=== PATIENT | female | born 1945 | race Caucasian/White ===

== ENCOUNTER 2016-09-01 06:54 | Day surgery (SDC) | payer MEDICARE, OTHER ==
[~2016-09-01] VITALS: Ht 147.3 cm; Wt 49.9 kg
[2016-09-01] VITALS (14 sets, daily range): BP systolic 106–194; BP diastolic 38–82; PULSE 64–78; RESP 11–24; Ht 147.3 cm; Wt 49.9 kg
[~2016-09-01 06:54] MED LIST: ASPI81TA3 PO; CALC500T11 PO; CARV12.579 PO; CHLO25TA13 PO; CRES10 PO; LEVO25TA53 PO; LIRA0.6P2 SQ; LISI20TA11 PO; SOD CHLORIDE 0.45% 1,000 ML IV SCH; TRAM-40 PO
[2016-09-01] MEDS ORDERED: DIAZEPAM 5 MG TAB PO SCH (08:00)
[2016-09-01 08:33] LABS: BASOPHIL # 0.1 10^3/ul (0.0-0.1); BASOPHILS % 0.8 % (0.0-2.0); CONDITION 1; EOSINOPHILS # 0.2 10^3/ul (0.0-0.5); EOSINOPHILS % 3.1 % (0.0-7.0); HEMATOCRIT 31.5 % (37.0-47.0); HEMOGLOBIN 10.7 g/dl (12.0-16.0); LYMPHOCYTES # 1.4 10^3/ul (0.8-2.9); LYMPHOCYTES % 21.2 % (15.0-51.0); MEAN CORPUSCULAR HEMOGLOBIN 31.2 pg (29.0-33.0); MEAN CORPUSCULAR VOLUME 91.9 fl (82.0-101.0); MEAN PLATELET VOLUME 8.7 fl (7.4-10.4); MONOCYTE # 0.7 10^3/ul (0.3-0.9); MONOCYTES % 10.5 % (0.0-11.0); NEUTROPHIL # 4.1 10^3/ul (1.6-7.5); NEUTROPHILS % 64.4 % (39.0-77.0); PLATELET COUNT 227 10^3/UL (140-440); RED BLOOD COUNT 3.43 10^6/ul (4.20-5.40); RED CELL DISTRIBUTION WIDTH 12.6 % (11.5-14.5); UNCORRECTED WBC 6.4 10^3/ul (4.8-10.8); WHITE BLOOD COUNT 6.4 10^3/ul (4.8-10.8)
[2016-09-01] MEDS ORDERED: FENTAnyl 50 MCG/ML VIAL ONE (08:51)
[2016-09-01] MEDS ORDERED: MIDAZOLAM 1 MG/ML 2 ML INJ ONE ×2 (08:51→09:38)
[2016-09-01 08:52] LABS: POTASSIUM 4.5 mmol/L (3.5-5.1)
[2016-09-01] MEDS ORDERED: IODIXANOL LOCM 100 ML BTL ONE (08:52)
[2016-09-01] MEDS ORDERED: HEPARIN 1000 UNITS/ML 10 ML INJ ONE (08:52)
[2016-09-01] MEDS ORDERED: LIDOCAINE 1% (MDV) 20 ML INJ ONE ×2 (08:52→09:28)
[2016-09-01 08:54] LABS: CREATININE 0.88 mg/dl (0.44-1.00)
--- NOTE | 2016-09-01 09:13 | QN ---
Documentation Comment Brief Pre-Procedure Note - 71 yof w/ severe PAD with lifestyle limiting claudication and found to have bilateral common iliac occlusions on prior angiogram (right CTA, left subtotal) . She was offered the option for evaluation for an aorto-bifemoral bypass by Dr. Lentz (who follows her regular in cardiology clinic). She refused because of her prior complications with prior surgeries and all her comorbidities. Had a long discussion with Dr. Lentz and reviewed the films. Will attempt revascularization of the bilateral common iliac occlusions today. Dr. Lentz had a long discussion with pt and her daughter regarding the risks, benefits, and alternatives (which include medical therapy). Risks include DE, stroke, vascular injury, bleeding, infection, contrast nephropathy, emergency surgery and . I confirmed this with the patient prior to the procedure. VENKAT HERNANDEZ Sep 01, 2016 09:13
[2016-09-01] MEDS ORDERED: SOD CHLORIDE 0.9% 1,000 ML IV SCH (10:29)
[2016-09-01] MEDS ORDERED: morphine 2 MG INJ IV PRN (10:30)
[2016-09-01] MEDS ORDERED: AL HYDROX/MG HYDROX/SIMETH 30 ML CUP PO PRN (10:30)
[2016-09-01] MEDS ORDERED: ACETAMINOPHEN 325 MG TAB PO PRN (10:30)
[2016-09-01] MEDS ORDERED: ONDANSETRON 4 MG INJ IV PRN (10:30)
[2016-09-01] MEDS ORDERED: hydrALAzine 20 MG INJ IV ONE (12:30)
[2016-09-01] MEDS ORDERED: NITROGLYCERIN (SL) 0.4 MG TAB SL PRN (13:30)
[2016-09-01] MEDS ORDERED: morphine 2 MG INJ IV ONE (14:30)
--- NOTE | 2016-09-06 10:35 | RADRPT ---
Vent Rate: 80 bpm RR Interval: 0 msec FL Interval: 130 msec QRS Duration: 84 msec QT Interval: 364 msec QTC Interval: 419 msec P-R-T [place]: 69 - 24 - 88 degrees Normal sinus rhythm Possible Anterior infarct , age undetermined Abnormal ECG Electronically Signed By: Kev Thorpe [id number]
--- NOTE | 2016-09-07 18:27 | OPR ---
DATE OF OPERATION: 09/01/2016 PROCEDURES PERFORMED: Left common femoral, left external and common iliac angiogram. 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 After last peripheral angiogram, decided to stop and ev aluate for aortobifemoral surgery. The patient is followed by Dr. Kev Thorpe for Cardiology. He had a detailed discussion with patient and her daughter. The patient did not want surgery becaus e of issues after her CABG which included postop acute kidney injury and wound infection. Plan toda y for a percutaneous revascularization of the common iliac CTOs by angioplasty and stenting. PROCEDURE NARRATIVE: Informed consent obtained and documented. Area above bilateral groins prepped and draped in sterile fashion. Using ultrasound and fluoroscopic guidance, access was obtained in the left common femoral artery. A 5-Beninese sheath was placed in the left common femoral artery, whi ch was heavily calcified. A femoral angiogram confirmed that the sheath was appropriately placed in the left common femoral artery with no evidence of dissection or perforation, that iliofemoral ray ogram also revealed that left common iliac was occluded and heavily calcified. A repeat angiogram f urtomer clarified that. ____ was made, and attempt was made to cross the TRADER of left common iliac wi th angled Glidewire 0.035 and an Omniflush 5-Beninese catheter, was successful to cross the TRADER with t he angled Glidewire. However, the Omniflush would not pass through the stenosis. At this point was going to attempt to cross through with a Quick-Cross microcatheter 0.035 and then switch to a stiff er wire. However, there was a STEMI that arrived in the ER. As there were no other labs available, per protocol, we had to stop the procedure and take the patient off the table. Removed the Omniflu sh catheter and the Glidewire, left the sheath in place, informed the patient what was going on. Th e patient was asymptomatic and hemodynamically stable. She was taken to the PACU. At this point spoke with Dr. Thorpe about the best way to proceed as the STEMI was being processed and taken to the lab. Decided it would be best to bring patient back and do the procedure in a man ner that would be free of interruptions. Dr. Thorpe discussed this with the patient and her daugh ter in detail. They agreed with this plan. The sheath was removed, and manual pressure was used to achieve hemostasis. IMPRESSION: Left common iliac chronic total occlusion, heavily calcified, was successfully able to cross this lesion with an angled Glidewire, but the procedure had to be aborted due to the arrival o f a STEMI in the emergency room. After discussion with Dr. Thorpe and patient in detail, decided would bring patient back to complete the procedure. PLAN: Continue medical therapy. Will reschedule patient to return for repeat attempt to revascular ize the TRADER, hopefully in a manner that won't be interrupted. COMPLICATIONS: None. ESTIMATED BLOOD LOSS: 5 mL SPECIMENS REMOVED: None. Dictated By: JOSÉ MIGUEL LONG MD /NTS Conf#: [id number] DID#: [id number]
== END 2016-09-01 17:10 | disposition home or self-care (01) ==
LOC: SDS 06:54
PROVIDERS: ATTEND Internal Medicine Interventional Cardiology
DX: I74.5 Embolism and thrombosis of iliac artery (principal); I10 Essential (primary) hypertension; E78.5 Hyperlipidemia, unspecified; Z95.1 Presence of aortocoronary bypass graft
CPT/HCPCS: 36140; 75630; 80048; 82962; 85025; 93005; C1769; C1887; C1894; J0360; J1644; J2250; J2270; J2405; J3010; Q9967

== ENCOUNTER → 2016-10-14 | Outpatient (CLI) | payer MEDICARE, OTHER ==
[~2016-10-14] MED LIST changes: -CHLO25TA13 PO; +IODIXANOL LOCM 100 ML BTL ONE; +IODIXANOL LOCM 50 ML BTL ONE; -LISI20TA11 PO; -SOD CHLORIDE 0.45% 1,000 ML IV SCH; +SOD CHLORIDE 0.9% 100 ML ONE
[2016-10-14 11:47] LABS: ADD SCAN DIFF NO
[2016-10-14 11:52] LABS: BASOPHIL # 0.1 10^3/ul (0.0-0.1); BASOPHILS % 0.9 % (0.0-2.0); EOSINOPHILS # 0.2 10^3/ul (0.0-0.5); EOSINOPHILS % 2.2 % (0.0-7.0); HEMATOCRIT 34.6 % (37.0-47.0); HEMOGLOBIN 11.5 g/dl (12.0-16.0); LYMPHOCYTES # 1.6 10^3/ul (0.8-2.9); LYMPHOCYTES % 19.8 % (15.0-51.0); MEAN CORPUSCULAR HEMOGLOBIN 31.3 pg (29.0-33.0); MEAN CORPUSCULAR HGB CONC 33.2 g/dl (32.0-37.0); MEAN PLATELET VOLUME 10.4 fl (7.4-10.4); MONOCYTE # 0.7 10^3/ul (0.3-0.9); MONOCYTES % 8.2 % (0.0-11.0); NEUTROPHIL # 5.4 10^3/ul (1.6-7.5); NEUTROPHILS % 68.4 % (39.0-77.0); PLATELET COUNT 269 10^3/UL (140-415); RED BLOOD COUNT 3.68 10^6/ul (4.20-5.40); RED CELL DISTRIBUTION WIDTH 12.1 % (11.5-14.5); WHITE BLOOD COUNT 7.9 10^3/ul (4.8-10.8)
[2016-10-14 12:04] LABS: INR 0.98
[2016-10-14 12:05] LABS: PARTIAL THROMBOPLASTIN TIME 28.6 Sec (25.0-35.0)
[2016-10-14 12:11] LABS: POTASSIUM 5.2 mmol/L (3.5-5.1)
[2016-10-14 12:13] LABS: CREATININE 1.25 mg/dl (0.44-1.00)
[2016-10-14 12:14] LABS: CALCIUM 9.6 mg/dl (8.4-10.2)
--- NOTE | 2016-10-16 13:27 | RADRPT ---
PROCEDURE: CT scan of the abdomen, pelvis, and lower extremities with contrast. CT angiogram of th e abdomen, pelvis, and lower extremities. CLINICAL INDICATION: Abdominal and pelvic pain. Bilateral lower extremity pain. TECHNIQUE: CT scan of the abdomen, pelvis, and lower extremities with contrast was performed with helical axial sections. The patient was scanned during intravenous administration of 110 ml of Visi paque 320. 2-D coronal reformatted images were obtained from the axial source images. In addition, 3-D post processing was performed. Total exam DLP is 600.09 mGy-cm. CTDIvol is 55.75 mGy. One or more of the following dose reduction techniques were used: Automated exposure control, adjustment o f the mA and/or kV according to patient size, use of iterative reconstruction technique. COMPARISON: None available FINDINGS: CT abdomen: There are sternal wires and mediastinal clips from previous CABG. There is coronary artery calcific ation. The heart is enlarged. There is no pericardial effusion or pleural effusion. The lung base s are normal. The liver is normal in size and attenuation. There is no focal hepatic lesion. The gallbladder is surgically absent with clips noted in the gallbladder bed. There is mild diffuse biliary dilatation with no obstructing lesion visualized. The spleen is normal in size. There is no focal splenic lesion. The pancreas is normal with no mass or evidence of pancreatitis. Both adrenals are normal with no enlargement or mass. Both kidneys demonstrate normal contrast enhancement. There is no solid renal mass or hydronephros is. There are small benign bilateral renal cysts. Small regions of scarring are present in the rig ht kidney with parenchymal thinning. There is no retroperitoneal lymphadenopathy or mass. There is diverticulosis of the colon with no evidence of diverticulitis. There has been previous ri ght hemicolectomy with surgical clips and sachin noted in the right side of the transverse colon. The bowel and mesentery are otherwise normal. There is no free fluid or free gas. CT pelvis: There is no pelvic lymphadenopathy or mass. The bladder and distal ureters are normal. The uterus and ovaries are grossly normal. There is diverticulosis of the colon with no evidence of diverticulitis. There is no free fluid or free gas. CT osseous structures: There is no fracture or lytic lesion. There are degenerative changes of the lower lumbar spine. CT angiogram: The distal thoracic aorta is normal with no aneurysm or dissection. Extensive calcified plaque is present in the abdominal aorta. The abdominal aorta is otherwise norm al with no aneurysm or dissection. The celiac axis, superior mesenteric artery, and inferior mesenteric artery are all well seen and ap pear normal with no stenosis or occlusion. Extensive calcified plaque is present at the origin of both renal arteries which may indicate renal artery stenosis. Extensive calcified plaque is present in the common iliac arteries with possible significant stenosi s on the right and mild stenosis on the left. The external iliac arteries and common iliac arteries are widely patent bilaterally. The superficial femoral arteries demonstrate multiple regions of mild stenosis measuring less than 3 0% bilaterally but are otherwise patent. The popliteal arteries are normal and patent bilaterally. The right posterior tibial artery is completely occluded. The calf arteries are otherwise widely pa tent bilaterally. IMPRESSION: 1. Previous CABG. 2. Coronary artery calcification. 3. Cardiomegaly. 4. Status post cholecystectomy. 5. Mild diffuse biliary dilatation with no obstructing lesion visualized. 6. Small benign bilateral renal cysts. 7. Small regions of scarring in the right kidney. 8. Diverticulosis of the colon with no evidence of diverticulitis. 9. Previous right hemicolectomy. 10. Degenerative changes of the lower lumbar spine. 11. Extensive calcified plaque in the abdominal aorta with no significant stenosis. 12. Possible bilateral renal artery stenosis. 13. Possible significant stenosis in the right common iliac artery. 14. Mild stenosis in the superficial femoral arteries bilaterally. 15. Completely occluded right posterior tibial artery. RPTAT: QQ .Colin Bernardo MD, Date Time Electronically viewed and signed by .Colin Bernardo MD, MD on 10/16/2016 13:27 .R/
== END | disposition home or self-care (01) ==
LOC: LAB 11:05
PROVIDERS: ATTEND Internal Medicine Interventional Cardiology
DX: I70.203 Unspecified atherosclerosis of native arteries of extremities, bilateral legs (principal); I25.10 Atherosclerotic heart disease of native coronary artery without angina pectoris; I65.29 Occlusion and stenosis of unspecified carotid artery; I12.9 Hypertensive chronic kidney disease with stage 1 through stage 4 chronic kidney disease, or unspecified chronic kidney disease; E11.22 Type 2 diabetes mellitus with diabetic chronic kidney disease; N18.9 Chronic kidney disease, unspecified; Z95.1 Presence of aortocoronary bypass graft; I51.7 Cardiomegaly; Z90.49 Acquired absence of other specified parts of digestive tract; K83.9 Disease of biliary tract, unspecified; N28.1 Cyst of kidney, acquired; K57.90 Diverticulosis of intestine, part unspecified, without perforation or abscess without bleeding; I70.0 Atherosclerosis of aorta; I70.1 Atherosclerosis of renal artery; I77.1 Stricture of artery
CPT/HCPCS: 75635; 80048; 85025; 85610; 85730; Q9967

== ENCOUNTER 2017-06-07 05:20 | Day surgery (SDC) | payer MEDICARE, OTHER ==
[~2017-06-07] VITALS: Ht 142.2 cm; Wt 49.6 kg
[2017-06-07] VITALS (76 sets, daily range): BP systolic 115–181; BP diastolic 36–68; PULSE 18–87; RESP 10–27; Ht 142.2 cm; Wt 49.6 kg
[~2017-06-07 05:20] MED LIST changes: -IODIXANOL LOCM 100 ML BTL ONE; -IODIXANOL LOCM 50 ML BTL ONE; -SOD CHLORIDE 0.9% 100 ML ONE
[2017-06-07] MEDS ORDERED: GELATIN SIZE 100 SPONGE ONE (06:46)
[2017-06-07] MEDS ORDERED: THROMBIN 5000 UNIT VIAL ONE (06:46)
[2017-06-07] MEDS ORDERED: HEPARIN 1000 UNITS/ML 10 ML INJ ONE ×2 (06:47→09:23)
[2017-06-07] MEDS ORDERED: OMEP20CA16 PO (07:00)
[2017-06-07] MEDS ORDERED: CARV25TA79 PO (07:00)
[2017-06-07] MEDS ORDERED: CHLO25TA13 PO (07:00)
--- NOTE | 2017-06-07 07:30 | HPN ---
Date/Time of Note Date/Time of Note DATE: 06/07/17 TIME: 07:30 Interval H&P Admission Note Pt. seen H&P reviewed: No system changes MEG FELICIANO MD Jun 07, 2017 07:30
[2017-06-07] MEDS ORDERED: PROPOFOL 20 ML ONE (07:43)
[2017-06-07] MEDS ORDERED: FENTAnyl 50 MCG/ML VIAL ONE ×2 (07:44→10:18)
[2017-06-07] MEDS ORDERED: MIDAZOLAM 1 MG/ML 2 ML INJ ONE ×4 (07:44→10:22)
[2017-06-07] MEDS ORDERED: LIDOCAINE 2% (SDV) 5 ML INJ ONE (07:47)
[2017-06-07] MEDS ORDERED: CEFAZOLIN 2 GM/50 ML (PMX) 50 ML IVPB SCH (08:30)
[2017-06-07] MEDS ORDERED: LIDOCAINE 1% (MPF) 30 ML INJ ONE (08:45)
[2017-06-07] MEDS ORDERED: CEFAZOLIN 1 GM INJ ONE (08:52)
[2017-06-07] MEDS ORDERED: LIDOCAINE 1% (MPF) 30 ML INJ INJ ONE (09:08)
[2017-06-07] MEDS ORDERED: IOHEXOL 300MG/ML 150 ML BTL ONE ×3 (09:12→14:21)
[2017-06-07] MEDS ORDERED: IOHEXOL 300MG/ML 30 ML BTL ONE ×2 (09:25→10:24)
[2017-06-07] MEDS ORDERED: LIDOCAINE 1% (STERILE-PAK) 30 ML INJ ONE (09:27)
[2017-06-07] MEDS ORDERED: hydrALAzine 20 MG INJ ONE (09:37)
[2017-06-07] MEDS ORDERED: SUCCINYLCHOLINE CHLORIDE 100 MG/5 ML SYG IV ONE (10:04)
--- NOTE | 2017-06-07 11:24 | SIPON ---
Date/Time of Note Date/Time of Note DATE: 06/07/17 TIME: 11:21 Operative Report Preoperative Diagnosis Right lower extremity rest pain, left lower extremity disabling claudication Postoperative Diagnosis same Operation/Procedure Performed AORTOILIAC ANGIOGRAM LEFT COMMON ILIAC STENTING AND ANGIOPLASTY USING VIABAHN STENT GRAFT 8X59mm Surgeon see signature line chemistry research assistant DR. RANDALL FELICIANO Anesthesia: moderate sedation Estimated blood loss: minimal Transfusion Required none Specimen NONE Grafts/Implants none Complications none MEG FELICIANO MD Jun 07, 2017 11:24
--- NOTE | 2017-06-07 11:24 | SIPON ---
Date/Time of Note Date/Time of Note DATE: 06/07/17 TIME: 11:21 Operative Report Preoperative Diagnosis Right lower extremity rest pain, left lower extremity disabling claudication Postoperative Diagnosis same Operation/Procedure Performed AORTOILIAC ANGIOGRAM LEFT COMMON ILIAC STENTING AND ANGIOPLASTY USING VIABAHN STENT GRAFT 8X59mm Surgeon see signature line photographer's assistant DR. RANDALL FELICIANO Anesthesia: moderate sedation Estimated blood loss: minimal Transfusion Required none Specimen NONE Grafts/Implants none Complications none MEG FELICIANO MD Jun 07, 2017 11:24
--- NOTE | 2017-06-07 11:24 | SIPON ---
Date/Time of Note Date/Time of Note DATE: 06/07/17 TIME: 11:21 Operative Report Preoperative Diagnosis Right lower extremity rest pain, left lower extremity disabling claudication Postoperative Diagnosis same Operation/Procedure Performed AORTOILIAC ANGIOGRAM LEFT COMMON ILIAC STENTING AND ANGIOPLASTY USING VIABAHN STENT GRAFT 8X59mm Surgeon see signature line blacksmith assistant DR. RANDALL FELICIANO Anesthesia: moderate sedation Estimated blood loss: minimal Transfusion Required none Specimen NONE Grafts/Implants none Complications none MEG FELICIANO MD Jun 07, 2017 11:24
[2017-06-07] MEDS ORDERED: DIPHENHYDRAMINE 50 MG INJ IV PRN (11:30)
[2017-06-07] MEDS ORDERED: OXYCODONE/ACETAMINOPHEN (5/325) TAB PO PRN ×2 (11:30)
[2017-06-07] MEDS ORDERED: EPHEDrine SULFATE 50 MG/5 ML SYG IV PRN (11:30)
[2017-06-07] MEDS ORDERED: MIDAZOLAM 1 MG/ML 2 ML INJ IV PRN (11:30)
[2017-06-07] MEDS ORDERED: ONDANSETRON 4 MG INJ IV PRN ×2 (11:30→15:30)
[2017-06-07] MEDS ORDERED: MEPERIDINE 25 MG INJ IV PRN (11:30)
[2017-06-07] MEDS ORDERED: LABETALOL HCL 20MG INJ IV PRN (11:30)
[2017-06-07] MEDS ORDERED: METOCLOPRAMIDE 10 MG INJ IV PRN (11:30)
[2017-06-07] MEDS ORDERED: FENTAnyl 50 MCG/ML VIAL IV PRN ×3 (11:30)
[2017-06-07] MEDS ORDERED: hydrALAzine 20 MG INJ IV PRN (11:30)
--- NOTE | 2017-06-07 12:28 | OPR ---
DATE OF OPERATION: 06/07/2017 SURGEON: Jakob Higginbotham MD. FRUIT OR NUT PICKER: Cliff Higginbotham MD. PREOPERATIVE DIAGNOSES: Right lower extremity rest pain and left lower extremity disabling claudica tion, aortoiliac occlusive disease. POSTOPERATIVE DIAGNOSES: Right lower extremity rest pain and left lower extremity disabling claudic ation, aortoiliac occlusive disease. ANESTHESIA: Moderate sedation with 1% lidocaine for local. ESTIMATED BLOOD LOSS: Minimal. COMPLICATIONS: None. HEPARIN: As recorded (2000 units). CONTRAST: As recorded. ACCESS: 1. Right common femoral artery 5-Swedish sheath. 2. Left common femoral artery 7-Swedish sheath. CLOSURE: Manual compression for the right groin, Angio-Seal closure device and manual compression f or the left groin. INDICATIONS: This is a 71-year-old vasculopath patient who has had multiple abdominal surgeries and has had severe aortoiliac atherosclerotic occlusive disease in which she had presented about 8 [place] hs ago with severe bilateral lower extremity disabling claudication after 2-3 minutes of ambulation. The patient's symptoms had worsened despite conservative therapy and optimizing her vascular statu s. The patient's right lower extremity has developed significant rest pain left lower extremity, vargas d developed disabling claudication. Therefore, risk and benefits and alternatives were discussed wi th the patient and the family in regards to possibility of aortobifemoral bypass. Aortoiliac stenti ng, possible left common iliac artery stenting and a fem-fem crossover. The risks including but not limited to bleeding, thrombosis, embolization, myocardial infarction, , stroke, device malfunc tion, infection, nephrotoxicity limb loss, bowel ischemia, nerve injury, spinal cord ischemia and th e patient has agreed to proceed. PROCEDURE: 1. Ultrasound-guided axis of the right common femoral artery. 2. Ultrasound-guided access of the left common femoral artery. 3. Introduction of catheter into the aorta. 4. Aortoiliac angiogram. 5. Left common iliac artery stent grafting using a Viabahn 8 x 59 mm balloon mounted stent. FINDINGS: 1. Severely calcified aortoiliac occlusive disease where the aorta becomes severely calcified in th e distal aspect and narrows. 2. Right common iliac artery completely occluded. 3. Right external iliac artery with severe stenosis. 4. Right internal iliac artery not well visualized. 5. Left common iliac artery with severe stenosis and calcification. 6. Left external iliac artery with mild to moderate disease. 7. Left internal iliac artery with mild to moderate disease. DESCRIPTION OF PROCEDURE: The patient was brought into the operating room table and placed in supin e position. Sedation was administered without any complications with our anesthesia team. Arterial line and Brody catheter placed under sterile conditions. At this point, the abdomen, bilateral michael ins were then shaved, prepped and draped in usual standard sterile fashion. Timeout and appropriate site was marked and confirmed. Preoperative antibiotics were given to the patient. Local anesthes ia was then infiltrated in the regions of the bilateral common femoral arteries. The artery, left c ommon femoral artery was then cannulated with a micro access needle under ultrasound guidance and a guidewire was advanced into the iliac artery under fluoroscopic guidance. The needle was then remov ed with the microcatheter that was placed over the wire. A Bentson wire was then passed into the in frarenal aorta under fluoroscopic guidance followed by a short 5-Swedish sheath over the wire. The s spencer was then appropriately flushed with heparinized saline solution. At this point, the same step s were repeated for the right common femoral artery; however, this was a bit challenging as the cary ent has an occlusive right common iliac artery and severely diseased external iliac artery. We did try multiple attempts in order to pass the wire into the common iliac artery which we were able to p erform. At this point, a microcatheter was placed and this was upsized to a 5-Swedish sheath. At th is point, using a Glidewire and a Bentson catheter. We attempted to cross the area of occlusion and severe stenosis of the common iliac artery and the external iliac artery. Multiple attempts were m justice and it was unsuccessful. At this point, it was decided to perform left common iliac artery sten ting in order to create a pathway for eventual fem-fem crossover for the patient. At this point, we went ahead and pressed our marker catheter in the infrarenal aorta and aortoiliac angiogram was per formed. 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 At t his point, we measured the distance from the lowest lumbar branch to the hypogastric vessel. With o ur sizing and our instruments that were available, we went ahead and performed oblique views of our iliac vessel and we prepared to place a stent graft balloon mounted Viabahn 8 mm x 59 mm stent. At this point, we went ahead and placed our stent and gradually deployed the stent to its maximal size of 8-9 mm. Patient tolerated this aspect well. Blood pressures were checked pre- and post-stent pl acement which pre-, the systolic blood pressure in the left groin measured about 90 to about 105 mmH g. Post-intervention, the blood pressure had increased to about 130-140 mmHg. At this point, multi ple completion angiograms were performed in an NIGERIAN and WONG fashion which identified no extravasation or ruptures. The patient tolerated this aspect of the procedure well. At this point, all catheter s, wires and sheaths were removed and Angio-Seal closure device was deployed in the left common femo ral artery. The patient, postoperatively, had a Dopplerable posterior tibial signal that was biphas ic and a monophasic anterior tibial signal which she did not have before. She also a capillary refi ll of about 3 seconds. With the right groin, we went ahead and removed the 5-Swedish sheath and manual compression was held for 20 minutes. Her right lower extremity still has capillary refill that was delayed about 4 secon ds and very monophasic flow of the posterior tibial, anterior tibial arteries were identified upon D oppler. No changes or no ischemia was identified. At this point, all instruments, sponge catheters and needles, wires and sheaths were correct x2. We will have the patient come back for a staged procedure for performing our left to right crossover fem-fem bypass graft. Dictated By: JAKOB VASQUEZ/CARMENCITA Conf#: [id number] DID#: [id number]
--- NOTE | 2017-06-07 12:28 | OPR ---
DATE OF OPERATION: 06/07/2017 SURGEON: Jakob Higginbotham MD. ENVIRONMENTAL MONITORING SPECIALIST: Cliff Higginbotham MD. PREOPERATIVE DIAGNOSES: Right lower extremity rest pain and left lower extremity disabling claudica tion, aortoiliac occlusive disease. POSTOPERATIVE DIAGNOSES: Right lower extremity rest pain and left lower extremity disabling claudic ation, aortoiliac occlusive disease. ANESTHESIA: Moderate sedation with 1% lidocaine for local. ESTIMATED BLOOD LOSS: Minimal. COMPLICATIONS: None. HEPARIN: As recorded (2000 units). CONTRAST: As recorded. ACCESS: 1. Right common femoral artery 5-[place] sheath. 2. Left common femoral artery 7-[place] sheath. CLOSURE: Manual compression for the right groin, Angio-Seal closure device and manual compression f or the left groin. INDICATIONS: This is a 71-year-old vasculopath patient who has had multiple abdominal surgeries and has had severe aortoiliac atherosclerotic occlusive disease in which she had presented about 8 [place] hs ago with severe bilateral lower extremity disabling claudication after 2-3 minutes of ambulation. The patient's symptoms had worsened despite conservative therapy and optimizing her vascular statu s. The patient's right lower extremity has developed significant rest pain left lower extremity, vargas d developed disabling claudication. Therefore, risk and benefits and alternatives were discussed wi th the patient and the family in regards to possibility of aortobifemoral bypass. Aortoiliac stenti ng, possible left common iliac artery stenting and a fem-fem crossover. The risks including but not limited to bleeding, thrombosis, embolization, myocardial infarction, , stroke, device malfunc tion, infection, nephrotoxicity limb loss, bowel ischemia, nerve injury, spinal cord ischemia and th e patient has agreed to proceed. PROCEDURE: 1. Ultrasound-guided axis of the right common femoral artery. 2. Ultrasound-guided access of the left common femoral artery. 3. Introduction of catheter into the aorta. 4. Aortoiliac angiogram. 5. Left common iliac artery stent grafting using a Viabahn 8 x 59 mm balloon mounted stent. FINDINGS: 1. Severely calcified aortoiliac occlusive disease where the aorta becomes severely calcified in th e distal aspect and narrows. 2. Right common iliac artery completely occluded. 3. Right external iliac artery with severe stenosis. 4. Right internal iliac artery not well visualized. 5. Left common iliac artery with severe stenosis and calcification. 6. Left external iliac artery with mild to moderate disease. 7. Left internal iliac artery with mild to moderate disease. DESCRIPTION OF PROCEDURE: The patient was brought into the operating room table and placed in supin e position. Sedation was administered without any complications with our anesthesia team. Arterial line and Brody catheter placed under sterile conditions. At this point, the abdomen, bilateral michael ins were then shaved, prepped and draped in usual standard sterile fashion. Timeout and appropriate site was marked and confirmed. Preoperative antibiotics were given to the patient. Local anesthes ia was then infiltrated in the regions of the bilateral common femoral arteries. The artery, left c ommon femoral artery was then cannulated with a micro access needle under ultrasound guidance and a guidewire was advanced into the iliac artery under fluoroscopic guidance. The needle was then remov ed with the microcatheter that was placed over the wire. A Bentson wire was then passed into the in frarenal aorta under fluoroscopic guidance followed by a short 5-[place] sheath over the wire. The s spencer was then appropriately flushed with heparinized saline solution. At this point, the same step s were repeated for the right common femoral artery; however, this was a bit challenging as the cary ent has an occlusive right common iliac artery and severely diseased external iliac artery. We did try multiple attempts in order to pass the wire into the common iliac artery which we were able to p erform. At this point, a microcatheter was placed and this was upsized to a 5-[place] sheath. At th is point, using a Glidewire and a Bentson catheter. We attempted to cross the area of occlusion and severe stenosis of the common iliac artery and the external iliac artery. Multiple attempts were m justice and it was unsuccessful. At this point, it was decided to perform left common iliac artery sten ting in order to create a pathway for eventual fem-fem crossover for the patient. At this point, we went ahead and pressed our marker catheter in the infrarenal aorta and aortoiliac angiogram was per formed. 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 At t his point, we measured the distance from the lowest lumbar branch to the hypogastric vessel. With o ur sizing and our instruments that were available, we went ahead and performed oblique views of our iliac vessel and we prepared to place a stent graft balloon mounted Viabahn 8 mm x 59 mm stent. At this point, we went ahead and placed our stent and gradually deployed the stent to its maximal size of 8-9 mm. Patient tolerated this aspect well. Blood pressures were checked pre- and post-stent pl acement which pre-, the systolic blood pressure in the left groin measured about 90 to about 105 mmH g. Post-intervention, the blood pressure had increased to about 130-140 mmHg. At this point, multi ple completion angiograms were performed in an [place] and [place] fashion which identified no extravasation or ruptures. The patient tolerated this aspect of the procedure well. At this point, all catheter s, wires and sheaths were removed and Angio-Seal closure device was deployed in the left common femo ral artery. The patient, postoperatively, had a Dopplerable posterior tibial signal that was biphas ic and a monophasic anterior tibial signal which she did not have before. She also a capillary refi ll of about 3 seconds. With the right groin, we went ahead and removed the 5-[place] sheath and manual compression was held for 20 minutes. Her right lower extremity still has capillary refill that was delayed about 4 secon ds and very monophasic flow of the posterior tibial, anterior tibial arteries were identified upon D oppler. No changes or no ischemia was identified. At this point, all instruments, sponge catheters and needles, wires and sheaths were correct x2. We will have the patient come back for a staged procedure for performing our left to right crossover fem-fem bypass graft. Dictated By: JAKOB VASQUEZ/CARMENCITA Conf#: [id number] DID#: [id number]
--- NOTE | 2017-06-07 12:28 | OPR ---
DATE OF OPERATION: 06/07/2017 SURGEON: Jakob Higginbotham MD. LEAD RECOVERER: Cliff Higginbotham MD. PREOPERATIVE DIAGNOSES: Right lower extremity rest pain and left lower extremity disabling claudica tion, aortoiliac occlusive disease. POSTOPERATIVE DIAGNOSES: Right lower extremity rest pain and left lower extremity disabling claudic ation, aortoiliac occlusive disease. ANESTHESIA: Moderate sedation with 1% lidocaine for local. ESTIMATED BLOOD LOSS: Minimal. COMPLICATIONS: None. HEPARIN: As recorded (2000 units). CONTRAST: As recorded. ACCESS: 1. Right common femoral artery 5-[place]izen [place] sheath. 2. Left common femoral artery 7-[place] sheath. CLOSURE: Manual compression for the right groin, Angio-Seal closure device and manual compression f or the left groin. INDICATIONS: This is a 71-year-old vasculopath patient who has had multiple abdominal surgeries and has had severe aortoiliac atherosclerotic occlusive disease in which she had presented about 8 [place] hs ago with severe bilateral lower extremity disabling claudication after 2-3 minutes of ambulation. The patient's symptoms had worsened despite conservative therapy and optimizing her vascular statu s. The patient's right lower extremity has developed significant rest pain left lower extremity, vargas d developed disabling claudication. Therefore, risk and benefits and alternatives were discussed wi th the patient and the family in regards to possibility of aortobifemoral bypass. Aortoiliac stenti ng, possible left common iliac artery stenting and a fem-fem crossover. The risks including but not limited to bleeding, thrombosis, embolization, myocardial infarction, , stroke, device malfunc tion, infection, nephrotoxicity limb loss, bowel ischemia, nerve injury, spinal cord ischemia and th e patient has agreed to proceed. PROCEDURE: 1. Ultrasound-guided axis of the right common femoral artery. 2. Ultrasound-guided access of the left common femoral artery. 3. Introduction of catheter into the aorta. 4. Aortoiliac angiogram. 5. Left common iliac artery stent grafting using a Viabahn 8 x 59 mm balloon mounted stent. FINDINGS: 1. Severely calcified aortoiliac occlusive disease where the aorta becomes severely calcified in th e distal aspect and narrows. 2. Right common iliac artery completely occluded. 3. Right external iliac artery with severe stenosis. 4. Right internal iliac artery not well visualized. 5. Left common iliac artery with severe stenosis and calcification. 6. Left external iliac artery with mild to moderate disease. 7. Left internal iliac artery with mild to moderate disease. DESCRIPTION OF PROCEDURE: The patient was brought into the operating room table and placed in supin e position. Sedation was administered without any complications with our anesthesia team. Arterial line and Brody catheter placed under sterile conditions. At this point, the abdomen, bilateral michael ins were then shaved, prepped and draped in usual standard sterile fashion. Timeout and appropriate site was marked and confirmed. Preoperative antibiotics were given to the patient. Local anesthes ia was then infiltrated in the regions of the bilateral common femoral arteries. The artery, left c ommon femoral artery was then cannulated with a micro access needle under ultrasound guidance and a guidewire was advanced into the iliac artery under fluoroscopic guidance. The needle was then remov ed with the microcatheter that was placed over the wire. A Bentson wire was then passed into the in frarenal aorta under fluoroscopic guidance followed by a short 5-[place]izen [place] sheath over the wire. The s spencer was then appropriately flushed with heparinized saline solution. At this point, the same step s were repeated for the right common femoral artery; however, this was a bit challenging as the cary ent has an occlusive right common iliac artery and severely diseased external iliac artery. We did try multiple attempts in order to pass the wire into the common iliac artery which we were able to p erform. At this point, a microcatheter was placed and this was upsized to a 5-[place] sheath. At th is point, using a Glidewire and a Bentson catheter. We attempted to cross the area of occlusion and severe stenosis of the common iliac artery and the external iliac artery. Multiple attempts were m justice and it was unsuccessful. At this point, it was decided to perform left common iliac artery sten ting in order to create a pathway for eventual fem-fem crossover for the patient. At this point, we went ahead and pressed our marker catheter in the infrarenal aorta and aortoiliac angiogram was per formed. 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 At t his point, we measured the distance from the lowest lumbar branch to the hypogastric vessel. With o ur sizing and our instruments that were available, we went ahead and performed oblique views of our iliac vessel and we prepared to place a stent graft balloon mounted Viabahn 8 mm x 59 mm stent. At this point, we went ahead and placed our stent and gradually deployed the stent to its maximal size of 8-9 mm. Patient tolerated this aspect well. Blood pressures were checked pre- and post-stent pl acement which pre-, the systolic blood pressure in the left groin measured about 90 to about 105 mmH g. Post-intervention, the blood pressure had increased to about 130-140 mmHg. At this point, multi ple completion angiograms were performed in an [employer] [place] and WONG fashion which identified no extravasation or ruptures. The patient tolerated this aspect of the procedure well. At this point, all catheter s, wires and sheaths were removed and Angio-Seal closure device was deployed in the left common femo ral artery. The patient, postoperatively, had a Dopplerable posterior tibial signal that was biphas ic and a monophasic anterior tibial signal which she did not have before. She also a capillary refi ll of about 3 seconds. With the right groin, we went ahead and removed the 5-[place]izen [place] sheath and manual compression was held for 20 minutes. Her right lower extremity still has capillary refill that was delayed about 4 secon ds and very monophasic flow of the posterior tibial, anterior tibial arteries were identified upon D oppler. No changes or no ischemia was identified. At this point, all instruments, sponge catheters and needles, wires and sheaths were correct x2. We will have the patient come back for a staged procedure for performing our left to right crossover fem-fem bypass graft. Dictated By: JAKOB VASQUEZ/CARMENCITA Conf#: [id number] DID#: [id number]
[2017-06-07] MEDS ORDERED: DOCUSATE SODIUM 100 MG CAP PO PRN (15:30)
[2017-06-07] MEDS ORDERED: NACL 0.9% 3 ML SYG IV SCH (15:30)
[2017-06-07] MEDS ORDERED: ACETAMINOPHEN 650MG/20.3ML CUP PO PRN (15:30)
[2017-06-07] MEDS ORDERED: MAGNESIUM HYDROXIDE 30ML CUP PO PRN (15:30)
[2017-06-07] MEDS ORDERED: morphine 2 MG INJ IV PRN (15:30)
[2017-06-07] MEDS: SOD CHLORIDE 0.9% 1,000 ML IV SCH (15:52)
[2017-06-07] MEDS ORDERED: GLUCOSE GEL 15 GRAM TUBE PO PRN ×2 (16:00)
[2017-06-07] MEDS ORDERED: GLUCOSE GEL 15 GRAM TUBE BUCCAL PRN (16:00)
[2017-06-07] MEDS ORDERED: GLUCAGON 1 MG INJ IM PRN (16:00)
[2017-06-07] MEDS ORDERED: DEXTROSE 50% 50 ML SYRINGE IV PRN ×2 (16:00)
--- NOTE | 2017-06-07 16:49 | HP ---
DATE OF ADMISSION: 06/07/2017 HISTORY OF PRESENT ILLNESS: The patient is a 71-year-old female with a past medical history of gordo re peripheral arterial disease, diabetes, hypertension, hyperlipidemia, coronary artery disease, sta tus post CABG, history of colorectal cancer, depression, and hypothyroidism. The patient was evalua jaky by Dr. Higginbotham in Vascular Surgery consultation for severe aortoiliac atherosclerotic disease with bilateral lower extremities disabling claudication. The patient failed conservative treatment. The patient was brought to the hospital and underwent bilateral iliac artery stenting, angiography for bilateral iliac arterial occlusive disease. Postoperatively, the patient complains of pain. D enies any nausea or vomiting. Denies headache. Denies chest pain. Denies shortness of breath, and the patient is admitted for further management in Intensive Care Unit. PAST MEDICAL HISTORY: Per HPI. PAST SURGICAL HISTORY: Status post CABG with NYE to LAD and CHULA to the RCA, status post cholecyst ectomy and status post a colon resection. FAMILY HISTORY: Noncontributory. SOCIAL HISTORY: The patient lives at home with her family. The patient denies any alcohol use. De nies any tobacco use. Denies any illicit drug use. ALLERGIES: NO KNOWN ALLERGIES. HOME MEDICATIONS: Include 1. Aspirin. 2. Calcium carbonate. 3. Coreg. 4. Levothyroxine. 5. Chlorthalidone. 6. Tramadol p.r.n. for pain. 7. Victoza. 8. Omeprazole. 9. Crestor. REVIEW OF SYSTEMS: A 12-point review of systems is negative unless what mentioned in the HPI. PHYSICAL ASSESSMENT GENERAL: A well developed, well-nourished female. Currently is awake, alert, in no acute distress. VITAL SIGNS: Temperature is 98.0, pulse is 68, blood pressure 154/52, respiratory rate 13, oxygen s aturation is 100% on 2 liters nasal cannula. HEAD, EARS, EYES, NOSE, AND THROAT: Head is atraumatic, normocephalic. Pupils are equal, round, an d reactive to light and accommodation. Oral mucosa is pink and moist. NECK: Supple. No cervical lymphadenopathy and no thyromegaly. CHEST: Lungs clear bilaterally. There are no rhonchi, wheezes, or rales noted. CARDIOVASCULAR: Normal S1 and S2. No murmurs, gallops, clicks, or rubs noted. ABDOMEN: Flat, soft, nondistended, and nontender. Bowel sounds present. EXTREMITIES: No edema, clubbing, or cyanosis. Pulses equal bilaterally, 2+. Right femoral site is status post surgery with an intact dressing. SKIN: There is no rash or petechiae noted. NEUROLOGICAL: The patient is awake, alert, and oriented x3. No focal deficits noted. Motor streng th is 5/5 in all extremities. LABORATORY DATA PRIOR TO ADMISSION: CBC: White blood cells 7.7, hemoglobin is 10.9, hematocrit 33. 1, platelets 273. Metabolic panel is sodium of 136, potassium 4.5, chloride 105, carbon dioxide 24, anion gap 11, glucose 149, calcium is 9.8, BUN is 28, creatinine 1.05. INR is 1.03. PT is 10. PT T is 28. ASSESSMENT AND PLAN 1. Bilateral iliac artery occlusion, status post bilateral iliac artery stenting, angiography. Con tinue to monitor the patient in Intensive Care Unit. Follow up surgical recommendations. Continue IV fluids. 2. Coronary artery disease, status post coronary artery bypass graft (CABG). We will resume her Co reg and aspirin. 3. Hypothyroidism. Continue Synthroid. 4. Diabetes mellitus. We will monitor blood sugar before meals. and at bedtime. NovoLog per sliding scale. 5. Hyperlipidemia. 6. History of gastroesophageal reflux disease (GERD). Continue omeprazole. We will continue Loven ox and omeprazole. Further recommendations based on clinical course. Plan of care discussed with . Dictated By: KHUSHI AGARWAL NITROGLYCERIN SEPARATOR OPERATOR for KB CAGE MD SR/NTS Conf#: [id number] DID#: [id number]
[2017-06-07] MEDS: INSULIN ASPART [NOVOLOG] 3 ML PEN SC SCH ×2 (17:13→20:46)
[2017-06-07] MEDS ORDERED: HYDROmorphONE 1 MG/ML SYG IV PRN (20:30)
[2017-06-07] MEDS: FAMOTIDINE 20 MG TAB PO SCH (20:39)
[2017-06-07] MEDS ORDERED: ATORVASTATIN 40 MG TAB PO SCH (21:00)
--- NOTE | 2017-06-07 23:00 | RADRPT ---
PROCEDURE: Intraoperative imaging of the pelvis with fluoroscopy. CLINICAL INDICATION: Stent placement. Intraoperative. TECHNIQUE: 1477 images of the pelvis were obtained in the operating room with an image intensifier . No radiologist was in attendance. Fluoroscopy time is 1178 seconds. COMPARISON: No prior study is available for comparison. FINDINGS: Images demonstrate contrast in the arterial system of the pelvis. Images were evaluated at that time of the study by the referring physician. IMPRESSION: 1. Intraoperative imaging of the pelvis. RPTAT: QQ .Colin Bernardo MD, MD Date Time Electronically viewed and signed by .Colin Bernardo MD, MD on 06/07/2017 23:00 .R/
[2017-06-08] VITALS (18 sets, daily range): BP systolic 121–162; BP diastolic 34–95; PULSE 64–75; RESP 9–25
[2017-06-08] MEDS ORDERED: ACCU-CHEK XX SCH ×2 (02:00)
[2017-06-08] MEDS: SOD CHLORIDE 0.9% 1,000 ML IV SCH (05:52)
[2017-06-08] MEDS ORDERED: PANTOPRAZOLE (EC) 40 MG TAB PO SCH (06:00)
[2017-06-08] MEDS ORDERED: LEVOTHYROXINE 25 MCG TAB PO SCH (07:00)
[2017-06-08] MEDS: INSULIN ASPART [NOVOLOG] 3 ML PEN SC SCH ×2 (07:35→11:30)
[2017-06-08] MEDS ORDERED: ASPIRIN 81 MG TAB PO SCH (09:00)
[2017-06-08] MEDS ORDERED: ENOXAPARIN 30 MG/0.3 ML SYG SC SCH (09:00)
[2017-06-08] MEDS ORDERED: CHLORTHALIDONE 25 MG TAB PO SCH (09:00)
[2017-06-08] MEDS: FAMOTIDINE 20 MG TAB PO SCH (09:41)
--- NOTE | 2017-06-08 10:34 | PN ---
Date/Time of Note Date/Time of Note DATE: 06/08/17 TIME: 10:27 Assessment/Plan Lines/Catheters IV Catheter Type (from Nrs): A Line Hamm in Place (from Nrs): Yes Assessment/Plan Chief Complaint/Hosp Course -Aortoiliac occlusive atherosclerosis, RLE rest pain, LLE disabling claudication : S/P Aortoiliac angiogram, Left common iliac artery stenting and angioplasty -D/C hamm -D/C a-line -Heplock IVF's -Patient cleared from vascular standpoint -OOB to chair and ambulate full weight bearing -May have regular diet -Discussed plan, findings and management with the patient and she understands with certified international project manager and daughter at bedside Problems: Subjective 24 Hr Interval Summary no new vascular events overnight. Constitutional: flatus, improved, no complaints, urine output Exam/Review of Systems Vital Signs Vitals Vital Signs Date Time Temp Pulse Resp B/P Pulse Ox O2 Delivery O2 Flow Rate FiO2 06/08/17 08:00 98.2 73 17 144/40 98 Nasal Cannula 2.0 Intake and Output 06/07/17 06/07/17 06/08/17 14:59 22:59 06:59 Intake Total 800 ml 785 ml 70 ml Output Total 220 ml 500 ml 110 ml Balance 580 ml 285 ml -40 ml Exam Free Text/Dictation A&Ox4 CTAB S1S2 present soft NTND BS+ RLE: nonpalpable femoral pulse, nonpalpable pedal pulse, motor/sensory intact, cap refill 3-4 seconds, groin soft LLE: palpable femoral pulse, Dopplerable PT signal biphasic, motor/sensory intact, cap refill 3-4 seconds, groin soft Results Result Diagram: 06/07/17 1545 06/07/17 1545 MEG FELICIANO MD Jun 08, 2017 10:34
--- NOTE | 2017-06-08 12:03 | PDOCDIS ---
Discharge Instructions CONDITION Patient Condition: Stable HOME CARE INSTRUCTIONS: Special Diet: CARB CONTROLLED ACTIVITY: Activity Restrictions: Slowly Increase Activity Rest between Activity Avoid heavy lifting Do not Drive Do not operate Machinery Do not operate Power Tool Avoid Heavy Housework Bathing Restrictions: FOLLOW UP/APPOINTMENTS Follow-up Plan FU with Primary x 1 week FU with vascular as recommended. Call 911 or go to the nearest hospital if symptoms get worse. Patient and family verbalized understanding dc instructions. Dw Dr Hernandez/ staff LAURA YOUNG Jun 08, 2017 12:03
[2017-06-08] MEDS ORDERED: PANT40TA3 PO (12:05)
--- NOTE | 2017-06-08 12:05 | DS ---
Date/Time of Note Date/Time of Note DATE: 06/08/17 TIME: 12:05 Discharge Summary Admission/Discharge Info Admit Date/Time Discharge Date/Time Patient Condition: Stable Hospital Course -Aortoiliac occlusive atherosclerosis, RLE rest pain, LLE disabling claudication : S/P Aortoiliac angiogram, Left common iliac artery stenting and angioplasty -D/C hamm -D/C a-line -Heplock IVF's -Patient cleared from vascular standpoint -OOB to chair and ambulate full weight bearing -May have regular diet -Discussed plan, findings and management with the patient and she understands with certified radiology special procedure tech and daughter at bedside Home Meds Active Scripts Pantoprazole* (Protonix*) 40 Mg Tablet., 40 MG PO DAILY, #20 TAB Prov:LAURA YOUNG 06/08/17 Reported Medications Omeprazole* (Omeprazole*) 20 Mg Capsule., 20 MG PO DAILY, #30 CAP 06/07/17 Carvedilol* (Carvedilol*) 25 Mg Tablet, 25 MG PO BID, #60 TAB 06/07/17 Chlorthalidone* (Chlorthalidone*) 25 Mg Tablet, 25 MG PO DAILY, TAB 06/07/17 Liraglutide (Victoza 3-German) 0.6 Mg/0.1 Ml Pen.injctr, 1.8 MG SQ DAILY, SYR 06/02/16 Tramadol Hcl* (Ultram*) 50 Mg Tablet, 50 MG PO Q6H Y for PAIN, TAB 06/02/16 Levothyroxine Sodium* (Levothyroxine Sodium*) 25 Mcg Tablet, 25 MCG PO BEFORE BREAKFAST, #30 TAB 06/02/16 Carvedilol* (Carvedilol*) 12.5 Mg Tablet, 12.5 MG PO BID, #60 TAB 06/02/16 Rosuvastatin Calcium* (Crestor*) 10 Mg Tablet, 10 MG PO QHS, #30 TAB 06/02/16 Aspirin* (Aspirin* Chew) 81 Mg Tab.chew, 81 MG PO DAILY, TAB.CHEW 06/02/16 Calcium Carbonate (Oysco-500) 500 Mg Tablet, 500 MG PO DAILY, TAB 06/02/16 Follow-up Plan FU with Primary x 1 week FU with vascular as recommended. Call 911 or go to the nearest hospital if symptoms get worse. Patient and family verbalized understanding dc instructions. Dw Dr Hernandez/ staff Primary Care Provider Not On Staff Doctor Time spent on discharge: < 30 minutes Pending Labs Laboratory Tests Test 06/07/17 12:34 06/07/17 15:45 06/07/17 17:08 06/07/17 20:37 Bedside Glucose 159mg/dL (70-220) 96mg/dL (70-220) 190mg/dL (70-220) White Blood Count 9.110^3/ul (4.8-10.8) Red Blood Count 2.9410^6/ul (4.20-5.40) Hemoglobin 8.7g/dl (12.0-16.0) Hematocrit 26.3% (37.0-47.0) Mean Corpuscular Volume 89.5fl (82.0-101.0) Mean Corpuscular Hemoglobin 29.6pg (29.0-33.0) Mean Corpuscular Hemoglobin Concent 33.1g/dl (32.0-37.0) Red Cell Distribution Width 12.8% (11.5-14.5) Platelet Count 86078^3/UL (140-415) Mean Platelet Volume 10.4fl (7.4-10.4) Neutrophils % 80.3% (39.0-77.0) Lymphocytes % 11.2% (15.0-51.0) Monocytes % 6.8% (0.0-11.0) Eosinophils % 0.9% (0.0-7.0) Basophils % 0.4% (0.0-2.0) Nucleated Red Blood Cells % 0.0/100WBC (0.0-0.0) Neutrophils # 7.310^3/ul (1.6-7.5) Lymphocytes # 1.010^3/ul (0.8-2.9) Monocytes # 0.610^3/ul (0.3-0.9) Eosinophils # 0.110^3/ul (0.0-0.5) Basophils # 0.010^3/ul (0.0-0.1) Nucleated Red Blood Cells # 0.010^3/ul (0.0-0.0) Prothrombin Time 13.7Sec (12.2-14.2) Prothrombin Time Ratio 1.1 INR International Normalized Ratio 1.05 Activated Partial Thromboplast Time 31.9Sec (25.0-35.0) Sodium Level 138mmol/L (135-144) Potassium Level 4.0mmol/L (3.5-5.1) Chloride Level 107mmol/L (97-110) Carbon Dioxide Level 23mmol/L (21-31) Anion Gap 12 (8-16) Blood Urea Nitrogen 21mg/dl (7-20) Creatinine 0.88mg/dl (0.44-1.00) Glucose Level 100mg/dl (70-220) Lactic Acid Level 0.6mmol/L (0.5-2.0) Calcium Level 8.6mg/dl (8.4-10.2) Test 06/08/17 04:03 06/08/17 08:26 06/08/17 09:58 Bedside Glucose 117mg/dL (70-220) 93mg/dL (70-220) White Blood Count 8.210^3/ul (4.8-10.8) Red Blood Count 2.8210^6/ul (4.20-5.40) Hemoglobin 8.6g/dl (12.0-16.0) Hematocrit 25.3% (37.0-47.0) Mean Corpuscular Volume 89.7fl (82.0-101.0) Mean Corpuscular Hemoglobin 30.5pg (29.0-33.0) Mean Corpuscular Hemoglobin Concent 34.0g/dl (32.0-37.0) Red Cell Distribution Width 12.8% (11.5-14.5) Platelet Count 44897^3/UL (140-415) Mean Platelet Volume 10.6fl (7.4-10.4) Neutrophils % 74.9% (39.0-77.0) Lymphocytes % 13.5% (15.0-51.0) Monocytes % 9.5% (0.0-11.0) Eosinophils % 1.1% (0.0-7.0) Basophils % 0.5% (0.0-2.0) Nucleated Red Blood Cells % 0.0/100WBC (0.0-0.0) Neutrophils # 6.110^3/ul (1.6-7.5) Lymphocytes # 1.110^3/ul (0.8-2.9) Monocytes # 0.810^3/ul (0.3-0.9) Eosinophils # 0.110^3/ul (0.0-0.5) Basophils # 0.010^3/ul (0.0-0.1) Nucleated Red Blood Cells # 0.010^3/ul (0.0-0.0) Sodium Level 140mmol/L (135-144) Potassium Level 4.0mmol/L (3.5-5.1) Chloride Level 109mmol/L (97-110) Carbon Dioxide Level 22mmol/L (21-31) Anion Gap 13 (8-16) Blood Urea Nitrogen 19mg/dl (7-20) Creatinine 0.97mg/dl (0.44-1.00) Glucose Level 94mg/dl (70-220) Lactic Acid Level 0.7mmol/L (0.5-2.0) Calcium Level 8.1mg/dl (8.4-10.2) Microbiology Date/Time Source Procedure Growth Status 06/07/17 15:40 Nares MRSA Screen - Preliminary Screening in process Resulted LAURA YOUNG Jun 08, 2017 12:05
[2017-06-09] MEDS ORDERED: FAMOTIDINE 20 MG TAB PO SCH (09:00)
== END 2017-06-08 13:45 | disposition home or self-care (01) ==
LOC: SDS 05:20 → UNDOADMIN 05:20 → REC 05:20 → EDSTATUS 07:30 → ICU 12:15 → REC 15:12 → ICU 15:12 → SDS 06-08 13:45
PROVIDERS: ATTEND Student in an Organized Health Care Education/Training Program
DX: I70.212 Atherosclerosis of native arteries of extremities with intermittent claudication, left leg (principal); I70.221 Atherosclerosis of native arteries of extremities with rest pain, right leg; I25.10 Atherosclerotic heart disease of native coronary artery without angina pectoris; Z95.1 Presence of aortocoronary bypass graft; E11.9 Type 2 diabetes mellitus without complications; I10 Essential (primary) hypertension; E03.9 Hypothyroidism, unspecified; Z79.82 Long term (current) use of aspirin; E78.5 Hyperlipidemia, unspecified; K21.9 Gastro-esophageal reflux disease without esophagitis
CPT/HCPCS: 37221; 75630; 80048; 82962; 83605; 85025; 85610; 85730; 86850; 86900; 86901; 86920; 87081; 87086; C1725; J0360; J0690; J1644; J1815; J2250; J2270; J2405; J3010; J7030; Q9967; J1650

== ENCOUNTER → 2017-06-14 | Outpatient (CLI) | payer MEDICARE, OTHER ==
[~2017-06-14] MED LIST changes: +CARV25TA79 PO; +CHLO25TA13 PO; +OMEP20CA16 PO; +PANT40TA3 PO
[2017-06-14 14:02] LABS: BASOPHIL # 0.1 10^3/ul (0.0-0.1); BASOPHILS % 0.7 % (0.0-2.0); EOSINOPHILS # 0.3 10^3/ul (0.0-0.5); EOSINOPHILS % 3.3 % (0.0-7.0); HEMATOCRIT 29.5 % (37.0-47.0); HEMOGLOBIN 9.8 g/dl (12.0-16.0); LYMPHOCYTES # 1.6 10^3/ul (0.8-2.9); LYMPHOCYTES % 16.9 % (15.0-51.0); MEAN CORPUSCULAR HEMOGLOBIN 30.2 pg (29.0-33.0); MEAN CORPUSCULAR HGB CONC 33.2 g/dl (32.0-37.0); MEAN PLATELET VOLUME 9.4 fl (7.4-10.4); MONOCYTE # 0.9 10^3/ul (0.3-0.9); MONOCYTES % 9.6 % (0.0-11.0); NEUTROPHIL # 6.5 10^3/ul (1.6-7.5); PLATELET COUNT 310 10^3/UL (140-415); RED BLOOD COUNT 3.24 10^6/ul (4.20-5.40); RED CELL DISTRIBUTION WIDTH 12.6 % (11.5-14.5); WHITE BLOOD COUNT 9.5 10^3/ul (4.8-10.8)
[2017-06-14 14:04] LABS: ADD UMIC YES; UR ASCORBIC ACID NEGATIVE (NEGATIVE); UR BILIRUBIN (Dip) NEGATIVE (NEGATIVE); UR BLOOD (Dip) NEGATIVE (NEGATIVE); UR CLARITY CLEAR (CLEAR); UR COLOR YELLOW (YELLOW); UR GLUCOSE (Dip) NEGATIVE (NEGATIVE); UR KETONES (Dip) NEGATIVE (NEGATIVE); UR LEUKOCYTE ESTERASE (Dip) 2+ Leu/ul (NEGATIVE); UR NITRITE (Dip) NEGATIVE (NEGATIVE); UR RBC 1 /HPF (0-5); UR SPECIFIC GRAVITY (Dip) 1.014 (1.003-1.030); UR SQUAMOUS EPITHELIAL CELL FEW /HPF (FEW); UR TOTAL PROTEIN (Dip) 1+ mg/dl (NEGATIVE); UR UROBILINOGEN (Dip) 1+ mg/dL (NEGATIVE)
[2017-06-14 14:18] LABS: INR 0.95; PROTIME 12.7 Sec (12.2-14.2)
[2017-06-14 14:19] LABS: CALCIUM 9.4 mg/dl (8.4-10.2); CREATININE 1.26 mg/dl (0.44-1.00); PARTIAL THROMBOPLASTIN TIME 28.4 Sec (25.0-35.0); POTASSIUM 4.9 mmol/L (3.5-5.1)
== END | disposition home or self-care (01) ==
LOC: LAB 13:21
PROVIDERS: ATTEND Student in an Organized Health Care Education/Training Program
DX: I70.221 Atherosclerosis of native arteries of extremities with rest pain, right leg (principal)
CPT/HCPCS: 80048; 81001; 85025; 85610; 85730; 86850; 86900; 86901

== ENCOUNTER 2017-06-20 05:43 | Inpatient (IN) | payer MEDICARE, OTHER ==
[~2017-06-20] VITALS: Ht 142.2 cm; Wt 48.7 kg
[2017-06-20] VITALS (34 sets, daily range): BP systolic 90–179; BP diastolic 38–73; PULSE 63–79; RESP 5–26; Ht 142.2 cm; Wt 48.7 kg
[2017-06-20] MEDS ORDERED: CEFAZOLIN 2 GM/50 ML (PMX) 50 ML IVPB SCH (06:00)
[2017-06-20] MEDS ORDERED: GELATIN SIZE 100 SPONGE ONE ×2 (06:45→11:23)
[2017-06-20] MEDS ORDERED: HEPARIN 1000 UNITS/ML 10 ML INJ ONE ×3 (06:45→11:39)
[2017-06-20] MEDS ORDERED: THROMBIN 5000 UNIT VIAL ONE ×3 (06:45→11:28)
[2017-06-20] MEDS ORDERED: ROCURONIUM 50 MG INJ ONE ×2 (07:00→12:58)
[2017-06-20] MEDS ORDERED: LACTATED RINGER'S 1,000 ML IV SCH (07:30)
--- NOTE | 2017-06-20 07:40 | HPN ---
Date/Time of Note Date/Time of Note DATE: 06/20/17 TIME: 07:38 Interval H&P Admission Note Pt. seen H&P reviewed: Systems changes noted below The patient under went Left common iliac stenting as the right side was occluded and was planned for a staged procedure of left to right iliofem possible femfem today. She still has RLE disabling claudication/rest pain MEG FELICIANO MD Jun 20, 2017 07:40
--- NOTE | 2017-06-20 07:42 | SIPON ---
Date/Time of Note Date/Time of Note DATE: 06/20/17 TIME: 07:41 Operative Report Preoperative Diagnosis RLE DISABLING CLAUDICATION/REST PAIN Postoperative Diagnosis SAME Operation/Procedure Performed LEFT ILIOFEMORAL ENDARTERECTOMY lEFT TO RIGHT FEMORAL TO FEMORAL BYPASS WITH PTFE Surgeon see signature line assistant womens volleyball coach NONE Anesthesia: general Estimated blood loss: other (450) Transfusion Required 2 UNITS PRBC Specimen NONE Grafts/Implants none Complications none MEG FELICIANO MD Jun 20, 2017 07:42
--- NOTE | 2017-06-20 07:42 | SIPON ---
Date/Time of Note Date/Time of Note DATE: 06/20/17 TIME: 07:41 Operative Report Preoperative Diagnosis RLE DISABLING CLAUDICATION/REST PAIN Postoperative Diagnosis SAME Operation/Procedure Performed LEFT ILIOFEMORAL ENDARTERECTOMY lEFT TO RIGHT FEMORAL TO FEMORAL BYPASS WITH PTFE Surgeon see signature line assistant loan processor NONE Anesthesia: general Estimated blood loss: other (450) Transfusion Required 2 UNITS PRBC Specimen NONE Grafts/Implants none Complications none MEG FELICIANO MD Jun 20, 2017 07:42
--- NOTE | 2017-06-20 07:42 | SIPON ---
Date/Time of Note Date/Time of Note DATE: 06/20/17 TIME: 07:41 Operative Report Preoperative Diagnosis RLE DISABLING CLAUDICATION/REST PAIN Postoperative Diagnosis SAME Operation/Procedure Performed LEFT ILIOFEMORAL ENDARTERECTOMY lEFT TO RIGHT FEMORAL TO FEMORAL BYPASS WITH PTFE Surgeon see signature line promotions assistant sales marketing NONE Anesthesia: general Estimated blood loss: other (450) Transfusion Required 2 UNITS PRBC Specimen NONE Grafts/Implants none Complications none MEG FELICIANO MD Jun 20, 2017 07:42
[2017-06-20] MEDS ORDERED: MIDAZOLAM 1 MG/ML 2 ML INJ ONE (07:46)
[2017-06-20] MEDS ORDERED: LACTATED RINGER'S 500 ML, HEPARIN 1,000 UNIT, PAPAVERINE 120 MG IV SCH ×4 (08:00)
[2017-06-20] MEDS ORDERED: SOD CHLORIDE 0.9% 250 ML IV* ONE (11:37)
[2017-06-20] MEDS ORDERED: HEMOSTATIC MATRIX SYG ZFS ONE (12:30)
[2017-06-20] MEDS ORDERED: LABETALOL HCL 20MG INJ ONE (12:58)
[2017-06-20] MEDS ORDERED: NEOSTIGMINE 3 MG/3 ML SYRINGE ONE (12:58)
[2017-06-20] MEDS ORDERED: CEFAZOLIN 1 GM INJ ONE (12:58)
[2017-06-20] MEDS ORDERED: PROPOFOL 20 ML ONE (12:58)
[2017-06-20] MEDS ORDERED: GLYCOPYRROLATE 0.4 MG INJ ONE (12:58)
[2017-06-20] MEDS ORDERED: LIDOCAINE 2% (SDV) 5 ML INJ ONE (12:58)
[2017-06-20] MEDS ORDERED: ONDANSETRON 4 MG INJ ONE (13:16)
[2017-06-20] MEDS ORDERED: hydrALAzine 20 MG INJ ONE (13:16)
[2017-06-20] MEDS ORDERED: CEFAZOLIN 1 GM/50 ML (PMX) 50 ML IVPB ONE (13:16)
[2017-06-20] MEDS ORDERED: GLUCOSE GEL 15 GRAM TUBE BUCCAL PRN ×2 (13:30→18:00)
[2017-06-20] MEDS ORDERED: GLUCAGON 1 MG INJ IM PRN ×2 (13:30→18:00)
[2017-06-20] MEDS ORDERED: HYDROmorphONE (0.2 MG/ML) 10ML SYG IV PRN ×3 (13:30)
[2017-06-20] MEDS ORDERED: DEXTROSE 50% 50 ML SYRINGE IV PRN ×4 (13:30→18:00)
[2017-06-20] MEDS ORDERED: hydrALAzine 20 MG INJ IV PRN (13:30)
[2017-06-20] MEDS ORDERED: INSULIN ASPART [NOVOLOG] 3 ML PEN SC ONE (13:30)
[2017-06-20] MEDS ORDERED: ONDANSETRON 4 MG INJ IV PRN ×2 (13:30→17:30)
[2017-06-20] MEDS ORDERED: DIPHENHYDRAMINE 50 MG INJ IV PRN (13:30)
[2017-06-20] MEDS ORDERED: FENTAnyl 50 MCG/ML VIAL IV PRN ×3 (13:30)
[2017-06-20] MEDS ORDERED: CEFAZOLIN 1 GM/50 ML (PMX) 50 ML IVPB SCH (13:30)
[2017-06-20] MEDS ORDERED: EPHEDrine SULFATE 50 MG/5 ML SYG IV PRN (13:30)
[2017-06-20] MEDS ORDERED: LABETALOL HCL 20MG INJ IV PRN (13:30)
[2017-06-20] MEDS ORDERED: GLUCOSE GEL 15 GRAM TUBE PO PRN ×4 (13:30→18:00)
[2017-06-20] MEDS ORDERED: METOCLOPRAMIDE 10 MG INJ IV PRN (13:30)
[2017-06-20] MEDS ORDERED: MEPERIDINE 25 MG INJ IV PRN (13:30)
[2017-06-20] MEDS ORDERED: KETOROLAC 30 MG INJ IV PRN (13:30)
[2017-06-20] MEDS ORDERED: HEPARIN 5,000 UNIT/0.5 ML VIAL SC SCH (14:00)
[2017-06-20] MEDS ORDERED: HYDROmorphONE 1 MG/ML SYG ONE (16:45)
[2017-06-20] MEDS: SOD CHLORIDE 0.9% 1,000 ML IV SCH (18:18)
[2017-06-20] MEDS: INSULIN ASPART [NOVOLOG] 3 ML PEN SC SCH ×2 (18:22→21:00)
[2017-06-20] MEDS: CEFAZOLIN 1 GM/50 ML (PMX) 50 ML IVPB SCH (21:32)
[2017-06-21] VITALS (23 sets, daily range): BP systolic 119–173; BP diastolic 42–87; PULSE 73–92; RESP 11–24
[2017-06-21] MEDS: HYDROCODONE/APAP (5/325) TAB PO PRN ×4 (01:10→18:40)
[2017-06-21] MEDS: ACCU-CHEK XX SCH ×2 (02:00)
[2017-06-21] MEDS: SOD CHLORIDE 0.9% 1,000 ML IV SCH ×2 (03:40→12:13)
--- NOTE | 2017-06-21 03:52 | HP ---
DATE OF ADMISSION: 06/20/2017 CHIEF COMPLAINT AND HISTORY OF PRESENT ILLNESS: The patient is a 71-year-old female well known to bala che from previous admission. The patient has history of coronary artery disease status post CABG, hyp ertension, dyslipidemia, diabetes mellitus and hypothyroidism. The patient also has a history of se pollo peripheral vascular disease and a couple of weeks ago underwent which is symptomatic. Th e patient has right lower extremity resting pain and left lower extremity claudication. Elisa rabago was taken to labor relations consultant on 06/07/2017 and was found to have severe calcific aortoiliac occlusive di sease, right common iliac artery was completely occluded, right external iliac artery with severe st enosis, right internal iliac artery was not well visualized, left common iliac artery with severe st enosis and calcification, left external iliac artery with mild to moderate disease, left internal il iac artery with mild to moderate disease. The patient, same day, also underwent left common iliac a rtery stenting and angioplasty. The patient, since then, has been following up with Dr. Jakob monzon and was brought into the hospital today and underwent left iliofemoral endarterectomy and left to right femoral to femoral bypass. The patient postoperatively denies any resting pain in lower ex tremities, denies any chest pain or shortness of breath, denies any nausea, vomiting or headache. N o reported abdominal pain. No reported weakness in any extremity. The patient did not have any fev er or chills. No report of any acute skin rash or any acute joint swelling. Other than postoperati ve pain, the rest of review of systems unremarkable. PAST SURGICAL HISTORY: As stated above. In addition, the patient is status post CABG with NYE to LAD and CHULA to RCA, status post cholecystectomy, status post colon resection. FAMILY HISTORY: Noncontributory. SOCIAL HISTORY: No smoking, no alcohol. Patient lives with her family. ALLERGIES: NONE. MEDICATIONS: The patient, prior to admission, was on: 1. Aspirin. 2. Carvedilol. 3. Crestor. 4. Ultram. 5. Calcium. 6. Chlorthalidone. 7. Omeprazole. 8. Levoxyl. 9. Victoza. LABORATORY DATA: Done this morning, WBC 7.9, hemoglobin 10, platelet 335. Chemistry: Sodium 142, potassium 5.1, BUN 23, creatinine 1.1, glucose 102. Hemoglobin A1c 6.5. AST 28, ALT 36, alkaline p hosphatase 92. IMPRESSION: 1. Severe peripheral vascular disease with recent left common iliac artery stenting, with continued ongoing symptoms and therefore today underwent left iliofemoral endarterectomy and left to right fe moral to femoral bypass. The patient will be continued on aspirin, as well as subQ heparin. 2. Coronary artery disease, status post CABG, currently chest pain free. Continue aspirin and carv edilol. 3. Hypertension. Blood pressure well controlled. Continue carvedilol. 4. Diabetes. We will hold off on Victoza and start her on sliding scale insulin for now. I will c ontinue to monitor her blood sugar. 5. Dyslipidemia. We will continue statins. 6. Hypothyroidism. Continue Synthroid. Plan of care discussed with patient's daughter. We will continue to follow. Patient did have sligh t bump in her creatinine from last month. Last month, patient's creatinine on 06/08/2017 was 0.9, a nd today it is 1.1. We will give IV fluid and we will do followup BMP. We will also check TSH and lipid panel to see if there is any need to adjust her Synthroid and statin. Dictated By: KB CAGE MD AB/CARMENCITA Conf#: [id number] DID#: [id number] CC: JAKOB FELICIANO MD;*EndCC*
[2017-06-21] MEDS: CEFAZOLIN 1 GM/50 ML (PMX) 50 ML IVPB SCH (05:31)
[2017-06-21] MEDS: LEVOTHYROXINE 25 MCG TAB PO SCH (07:33)
[2017-06-21] MEDS: CHLORTHALIDONE 25 MG TAB PO SCH (07:33)
[2017-06-21] MEDS: CALCIUM CARBONATE 1.25 GM TAB PO SCH (07:33)
[2017-06-21] MEDS: ASPIRIN 81 MG TAB PO SCH (07:35)
[2017-06-21] MEDS: INSULIN ASPART [NOVOLOG] 3 ML PEN SC SCH ×4 (07:35→20:22)
[2017-06-21] MEDS: PANTOPRAZOLE (EC) 40 MG TAB PO SCH (08:38)
[2017-06-21] MEDS ORDERED: NON-FORMULARY/PATIENT OWN MED (Omeprazole* 20 MG) PO SCH (09:00)
--- NOTE | 2017-06-21 13:13 | PN ---
Date/Time of Note Date/Time of Note DATE: 06/21/17 TIME: 13:10 Assessment/Plan VTE Prophylaxis VTE Prophylaxis Intervention: SCD's Lines/Catheters IV Catheter Type (from Nrsg): A Line Urinary Cath still in place: Yes Reason Cath still needed: urinary retention Assessment/Plan Chief Complaint/Hosp Course Complains of mild pain in the bilateral femoral areas, dressings are dry clean and intact. Remains hemodynamically stable, able to get out of bed with PT. Problems: Assessment/Plan 1. Severe peripheral vascular disease with recent left common iliac artery stenting, s/p left iliofemoral endarterectomy and left to right femoral to femoral bypass. Continue aspirin, as well as subQ heparin. 2. Coronary artery disease, status post CABG, currently chest pain free. Continue aspirin and carvedilol. 3. Hypertension. Blood pressure well controlled. Continue carvedilol. 4. Diabetes. We will hold off on Victoza and start her on sliding scale insulin for now. I will continue to monitor her blood sugar. 5. Dyslipidemia. We will continue statins. 6. Hypothyroidism. Continue Synthroid. Exam/Review of Systems Vital Signs Vitals Vital Signs Date Time Temp Pulse Resp B/P Pulse Ox O2 Delivery O2 Flow Rate FiO2 06/21/17 12:00 98.4 80 16 161/53 100 Room Air Intake and Output 06/20/17 06/20/17 06/21/17 15:00 23:00 07:00 Intake Total 2250 ml 960 ml 200 ml Output Total 750 ml 150 ml 190 ml Balance 1500 ml 810 ml 10 ml Exam Constitutional: alert, oriented Head: normocephalic Neck: supple Respiratory: normal air movement Cardiovascular: nl pulses, regular rate and rhythm Gastrointestinal: non-tender, soft Musculoskeletal: nl extremities to inspection Extremities: normal pulses Neurological: nl mental status Results Result Diagram: 06/21/17 0510 06/21/17 0510 Results 24 hrs Laboratory Tests Test 06/20/17 13:31 06/20/17 18:20 06/20/17 21:31 06/21/17 05:03 Bedside Glucose 160 155 165 Lab Scanned Report BLOOD TRANSFUSION Test 06/21/17 05:10 06/21/17 08:15 06/21/17 12:04 White Blood Count 13.5 #H Red Blood Count 2.96 L Hemoglobin 8.6 L Hematocrit 25.7 L Mean Corpuscular Volume 86.8 Mean Corpuscular Hemoglobin 29.1 Mean Corpuscular Hemoglobin Concent 33.5 Red Cell Distribution Width 15.6 #H Platelet Count 228 # Mean Platelet Volume 9.8 Neutrophils % 84.3 H Lymphocytes % 7.7 L Monocytes % 7.1 Eosinophils % 0.0 Basophils % 0.4 Nucleated Red Blood Cells % 0.0 Neutrophils # 11.4 H Lymphocytes # 1.0 Monocytes # 1.0 H Eosinophils # 0.0 Basophils # 0.1 Nucleated Red Blood Cells # 0.0 Sodium Level 139 Potassium Level 4.6 Chloride Level 111 H Carbon Dioxide Level 21 Anion Gap 12 Blood Urea Nitrogen 26 H Creatinine 1.16 H Glucose Level 106 Calcium Level 7.8 L Triglycerides Level 97 Cholesterol Level 57 L LDL Cholesterol, Calculated 10 HDL Cholesterol 28 L Cholesterol/HDL Ratio 2.0 Thyroid Stimulating Hormone (TSH) 2.360 Bedside Glucose 119 142 Medications Medications Current Medications Aspirin (Aspirin) 81 mg DAILY PO Last administered on 06/21/17 07:35; Admin Dose 81 MG; Start 06/21/17 at 09:00 Calcium Carbonate (Oyster Shell Calcium) 1.25 gm DAILY PO Last administered on 06/21/17 07:33; Admin Dose 1.25 GM; Start 06/21/17 at 09:00 Carvedilol (Coreg) 12.5 mg BID PO Last administered on 06/21/17 07:34; Admin Dose 12.5 MG; Start 06/20/17 at 21:00 Pantoprazole 40 mg 40 mg DAILY PO Last administered on 06/21/17 08:38; Admin Dose 40 MG; Start 06/21/17 at 09:00 Sodium Chloride (NS) 1,000 ml @ 100 mls/hr Q10H IV Last administered on 12:13; Admin Dose 100 MLS/HR; Start 06/20/17 at 17:30 Diagnostic Test (Pha) (Accu-Chek) ea 02 XX ; Start 06/21/17 at 02:00 Diagnostic Test (Pha) (Accu-Chek) ea 02 XX ; Start 06/21/17 at 02:00 Ondansetron HCl (Zofran Inj) 4 mg Q4H PRN IV NAUSEA AND/OR VOMITING Last administered on 06/21/17 07:44; Admin Dose 4 MG; Start 06/20/17 at 17:30 Acetaminophen/ Hydrocodone Bitart ([place] (5/325)) 1 tab Q4H PRN PO MODERATE PAIN Last administered on 06/21/17 07:34; Admin Dose 1 TAB; Start 06/20/17 at 17:30 Miscellaneous Information 1 ea NOTE XX ; Start 06/20/17 at 18:00 Glucose (Glutose) 15 gm Q15M PRN PO DECREASED GLUCOSE; Start 06/20/17 at 18:00 Glucose (Glutose) 22.5 gm Q15M PRN PO DECREASED GLUCOSE; Start 06/20/17 at 18: 00 Dextrose (D50w Syringe) 25 ml Q15M PRN IV DECREASED GLUCOSE; Start 06/20/17 at 18:00 Dextrose (D50w Syringe) 50 ml Q15M PRN IV DECREASED GLUCOSE; Start 06/20/17 at 18:00 Glucagon (Glucagen) 1 mg Q15M PRN IM DECREASED GLUCOSE; Start 06/20/17 at 18: 00 Glucose (Glutose) 15 gm Q15M PRN BUCCAL DECREASED GLUCOSE; Start 06/20/17 at 18:00 Chlorthalidone (Hygroton) 25 mg DAILY PO Last administered on 06/21/17 07:33; Admin Dose 25 MG; Start 06/21/17 at 09:00 Atorvastatin Calcium (Lipitor) 40 mg DAILY@21 PO ; Start 06/21/17 at 21:00 KHUSHI AGARWAL Jun 21, 2017 13:13
--- NOTE | 2017-06-21 15:46 | PN ---
Date/Time of Note Date/Time of Note DATE: 06/21/17 TIME: 15:39 Assessment/Plan Lines/Catheters IV Catheter Type (from Nrsg): A Line Brody in Place (from Nrsg): Yes Assessment/Plan Chief Complaint/Hosp Course -Bilateral lower extremity atherosclerosis with LLE disabling claudication and RLE rest pain: -S/P Left iliofemoral endarterectomy with bovine patch angioplasty -S/P Left -> Right femfem bypass with PTFE -D/C A line -D/C Brody -PT/OT and OOB FWB -Transfer to Telemetry post ambulation -Pain control, -DVT PPX with Heparin 5000Units SC Q8 -Resume all home meds -D/C planning -Heplock IVF if tolerating diet Problems: Subjective 24 Hr Interval Summary no new vascular events overnight, OOB and ambulated without issues, incisional pain Exam/Review of Systems Vital Signs Vitals Vital Signs Date Time Temp Pulse Resp B/P Pulse Ox O2 Delivery O2 Flow Rate FiO2 06/21/17 12:00 98.4 80 16 161/53 100 Room Air Intake and Output 06/20/17 06/20/17 06/21/17 15:00 23:00 07:00 Intake Total 2250 ml 960 ml 200 ml Output Total 750 ml 150 ml 190 ml Balance 1500 ml 810 ml 10 ml Exam Free Text/Dictation A&Ox3 CTAB S1S2 present soft NTND BS+ RLE: palpable femoral pulse, Dopplerable PT biphasic, motor/sensory intact, cap refill 3 seconds, incision dressing clean & dry LLE: palpable femoral pulse, Dopplerable PT biphasic, motor/sensory intact, cap refill 3 seconds, incision dressing clean & dry Results Result Diagram: 06/21/17 0510 06/21/17 0510 MEG FELICIANO MD Jun 21, 2017 15:46
[2017-06-21] MEDS: HEPARIN 5,000 UNIT/0.5 ML VIAL SC SCH ×2 (15:52→21:51)
[2017-06-21] MEDS: ATORVASTATIN 40 MG TAB PO SCH (20:23)
[2017-06-22] VITALS (13 sets, daily range): BP systolic 108–142; BP diastolic 54–65; PULSE 68–80; RESP 16–19
[2017-06-22] MEDS: SOD CHLORIDE 0.9% 1,000 ML IV SCH ×2 (01:37→07:07)
[2017-06-22] MEDS: HYDROCODONE/APAP (5/325) TAB PO PRN ×4 (01:37→21:52)
[2017-06-22] MEDS: ACCU-CHEK XX SCH ×2 (02:00)
[2017-06-22] MEDS: HEPARIN 5,000 UNIT/0.5 ML VIAL SC SCH ×3 (06:06→21:55)
[2017-06-22] MEDS: LEVOTHYROXINE 25 MCG TAB PO SCH (06:08)
[2017-06-22] MEDS: INSULIN ASPART [NOVOLOG] 3 ML PEN SC SCH ×4 (07:55→20:10)
[2017-06-22] MEDS: PANTOPRAZOLE (EC) 40 MG TAB PO SCH (08:14)
[2017-06-22] MEDS: ASPIRIN 81 MG TAB PO SCH (08:14)
[2017-06-22] MEDS: CALCIUM CARBONATE 1.25 GM TAB PO SCH (08:14)
[2017-06-22] MEDS: CHLORTHALIDONE 25 MG TAB PO SCH (08:15)
--- NOTE | 2017-06-22 11:39 | PN ---
Date/Time of Note Date/Time of Note DATE: 06/22/17 TIME: 11:35 Assessment/Plan Lines/Catheters IV Catheter Type (from Nrsg): Saline Lock Brody in Place (from Nrsg): No Assessment/Plan Chief Complaint/Hosp Course -Bilateral lower extremity atherosclerosis with LLE disabling claudication and RLE rest pain: -S/P Left iliofemoral endarterectomy with bovine patch angioplasty -S/P Left -> Right femfem bypass with PTFE -PT/OT and OOB FWB -Transfer to floor -DVT PPX with Heparin 5000Units SC Q8 -Resume all home meds -D/C planning and may be discharged tomorrow if no further issues -Heplock IVF if tolerating diet Problems: Subjective 24 Hr Interval Summary no new vascular events overnight, some incisional discomfort Exam/Review of Systems Vital Signs Vitals Vital Signs Date Time Temp Pulse Resp B/P Pulse Ox O2 Delivery O2 Flow Rate FiO2 06/22/17 11:16 98.1 74 16 108/54 98 06/21/17 18:00 Room Air Intake and Output 06/21/17 06/21/17 06/22/17 15:00 23:00 07:00 Intake Total 1175 ml 100 ml 600 ml Output Total 290 ml Balance 885 ml 100 ml 600 ml Exam Free Text/Dictation A&Ox3 CTAB S1S2 present soft NTND BS+ RLE: palpable femoral pulse, Dopplerable PT biphasic, motor/sensory intact, cap refill 3 seconds, incision dressing clean & dry - Removed LLE: palpable femoral pulse, Dopplerable PT biphasic, motor/sensory intact, cap refill 3 seconds, incision dressing clean & dry - Removed Results Result Diagram: 06/21/17 0510 06/21/17 0510 MEG FELICIANO MD Jun 22, 2017 11:38
--- NOTE | 2017-06-22 15:45 | PN ---
Date/Time of Note Date/Time of Note DATE: 06/22/17 TIME: 15:43 Assessment/Plan VTE Prophylaxis VTE Prophylaxis Intervention: other Lines/Catheters [facility] Saline Lock Urinary Cath still in place: No Assessment/Plan Assessment/Plan -Bilateral lower extremity atherosclerosis with LLE disabling claudication and RLE rest pain: -S/P Left iliofemoral endarterectomy with bovine patch angioplasty -S/P Left -> Right femfem bypass with PTFE - Leukocytosis possibly sec to above- cont to observe, am labs 1. Severe peripheral vascular disease with recent left common iliac artery stenting, s/p left iliofemoral endarterectomy and left to right femoral to femoral bypass. Continue aspirin, as well as subQ heparin. 2. Coronary artery disease, status post CABG, currently chest pain free. Continue aspirin and carvedilol. 3. Hypertension. Blood pressure well controlled. Continue carvedilol. 4. Diabetes. We will hold off on Victoza and start her on sliding scale insulin for now. I will continue to monitor her blood sugar. 5. Dyslipidemia. We will continue statins. 6. Hypothyroidism. Continue Synthroid. Subjective 24 Hr Interval Summary Respiratory: no complaints Cardiovascular: no complaints Gastrointestinal: no complaints Exam/Review of Systems Vital Signs Vitals Vital Signs Date Time Temp Pulse Resp B/P Pulse Ox O2 Delivery O2 Flow Rate FiO2 06/22/17 15:16 98.0 69 16 130/60 99 06/21/17 18:00 Room Air Intake and Output 06/21/17 06/21/17 06/22/17 15:00 23:00 07:00 Intake Total 1175 ml 100 ml 600 ml Output Total 290 ml Balance 885 ml 100 ml 600 ml Exam Constitutional: well developed Respiratory: diminished breath sounds Cardiovascular: nl pulses Gastrointestinal: non-tender, soft Musculoskeletal: other Results Result Diagram: 06/21/17 0510 06/21/17 0510 Results 24 hrs Laboratory Tests Test 06/21/17 17:24 06/21/17 20:22 06/22/17 06:52 06/22/17 07:55 Bedside Glucose 163 147 138 Lab Scanned Report BLOOD TRANSFUSION Test 06/22/17 11:35 Bedside Glucose 178 Medications Medications Current Medications Aspirin (Aspirin) 81 mg DAILY PO Last administered on 06/22/17t 08:14; Admin Dose 81 MG; Start 06/21/17 at 09:00 Calcium Carbonate (Oyster Shell Calcium) 1.25 gm DAILY PO Last administered on 06/22/17 08:14; Admin Dose 1.25 GM; Start 06/21/17 at 09:00 Carvedilol (Coreg) 12.5 mg BID PO Last administered on 06/22/17 08:14; Admin Dose 12.5 MG; Start 06/20/17 at 21:00 Pantoprazole (Protonix Tab) 40 mg DAILY PO Last administered on 06/22/17 08:14 ; Admin Dose 40 MG; Start 06/21/17 at 09:00 Diagnostic Test (Pha) (Accu-Chek) 1 ea 02 XX ; Start 06/21/17 at 02:00 Diagnostic Test (Pha) (Accu-Chek) 1 ea 02 XX ; Start 06/21/17 at 02:00 Ondansetron HCl (Zofran Inj) 4 mg Q4H PRN IV NAUSEA AND/OR VOMITING Last administered on 06/21/17 07:44; Admin Dose 4 MG; Start 06/20/17 at 17:30 Acetaminophen/ Hydrocodone Bitart ([place] (5/325)) 1 tab Q4H PRN PO MODERATE PAIN Last administered on 06/22/17 15:20; Admin Dose 1 TAB; Start 06/20/17 at 17:30 Miscellaneous Information 1 ea NOTE XX ; Start 06/20/17 at 18:00 Glucose (Glutose) 15 gm Q15M PRN PO DECREASED GLUCOSE; Start 06/20/17 at 18:00 Glucose (Glutose) 22.5 gm Q15M PRN PO DECREASED GLUCOSE; Start 06/20/17 at 18: 00 Dextrose (D50w Syringe) 25 ml Q15M PRN IV DECREASED GLUCOSE; Start 06/20/17 at 18:00 Dextrose (D50w Syringe) 50 ml Q15M PRN IV DECREASED GLUCOSE; Start 06/20/17 at 18:00 Glucagon (Glucagen) 1 mg Q15M PRN IM DECREASED GLUCOSE; Start 06/20/17 at 18: 00 Glucose (Glutose) 15 gm Q15M PRN BUCCAL DECREASED GLUCOSE; Start 06/20/17 at 18:00 Chlorthalidone (Hygroton) 25 mg DAILY PO Last administered on 06/22/17 08:15; Admin Dose 25 MG; Start 06/21/17 at 09:00 Atorvastatin Calcium (Lipitor) 40 mg DAILY@21 PO Last administered on 20:23; Admin Dose 40 MG; Start 06/21/17 at 21:00 Heparin Sodium (Porcine) (Heparin (5000 Units/0.5 ml)) 5,000 unit Q8 SC Last administered on 06/22/17 13:42; Admin Dose 5,000 UNIT; Start 06/21/17 at 15:30 LAURA YOUNG Jun 22, 2017 15:45
[2017-06-22] MEDS: ATORVASTATIN 40 MG TAB PO SCH (20:11)
[2017-06-23] VITALS (12 sets, daily range): BP systolic 117–154; BP diastolic 58–71; PULSE 66–79; RESP 16–19
[2017-06-23] MEDS: ACCU-CHEK XX SCH ×2 (01:42→01:43)
[2017-06-23] MEDS: HYDROCODONE/APAP (5/325) TAB PO PRN ×2 (02:09→19:28)
--- NOTE | 2017-06-23 05:55 | PN ---
Date/Time of Note Date/Time of Note DATE: 06/23/17 TIME: 05:51 Assessment/Plan Lines/Catheters IV Catheter Type (from Nrs): Saline Lock Brody in Place (from Nrs): No Assessment/Plan Chief Complaint/Hosp Course -Bilateral lower extremity atherosclerosis with LLE disabling claudication and RLE rest pain: -S/P Left iliofemoral endarterectomy with bovine patch angioplasty -S/P Left -> Right femfem bypass with PTFE -PT/OT and OOB FWB -Transfer to med/surg or D/C planning if cleared from medical standpoint -DVT PPX with Heparin 5000Units SC Q8 -Resume all home meds -D/C planning -Heplock IVF if tolerating diet Problems: Subjective 24 Hr Interval Summary no new vascular events, OOB and ambulated without restrictions Exam/Review of Systems Vital Signs Vitals Vital Signs Date Time Temp Pulse Resp B/P Pulse Ox O2 Delivery O2 Flow Rate FiO2 06/23/17 04:32 71 06/23/17 03:54 97.7 19 128/63 97 06/21/17 18:00 Room Air Intake and Output 06/22/17 06/22/17 06/23/17 15:00 23:00 07:00 Intake Total 350 ml 420 ml 200 ml Output Total 550 ml Balance 350 ml -130 ml 200 ml Exam Free Text/Dictation A&Ox3 CTAB S1S2 present soft NTND BS+ RLE: palpable femoral pulse, Dopplerable PT biphasic, motor/sensory intact, cap refill 3 seconds, incision dressing clean & dry LLE: palpable femoral pulse, Dopplerable PT biphasic, motor/sensory intact, cap refill 3 seconds, incision dressing clean & dry Results Result Diagram: 06/21/17 0510 06/21/17 0510 MEG FELICIANO MD Jun 23, 2017 05:55
[2017-06-23] MEDS: LEVOTHYROXINE 25 MCG TAB PO SCH (06:17)
[2017-06-23] MEDS: HEPARIN 5,000 UNIT/0.5 ML VIAL SC SCH ×3 (06:33→21:18)
[2017-06-23] MEDS: INSULIN ASPART [NOVOLOG] 3 ML PEN SC SCH ×4 (07:43→20:33)
[2017-06-23] MEDS: CALCIUM CARBONATE 1.25 GM TAB PO SCH (08:00)
[2017-06-23] MEDS: CHLORTHALIDONE 25 MG TAB PO SCH (08:00)
[2017-06-23] MEDS: PANTOPRAZOLE (EC) 40 MG TAB PO SCH (08:00)
[2017-06-23] MEDS: ASPIRIN 81 MG TAB PO SCH (08:00)
--- NOTE | 2017-06-23 08:44 | OPR ---
DATE OF OPERATION: 06/20/2017 SURGEON: Jakob Higginbotham MD. ACADEMIC SUPPORT DIRECTOR: Cliff Higginbotham. PREOPERATIVE DIAGNOSIS: Right lower extremity disabling claudication/rest pain and left lower extre mity disabling claudication. POSTOPERATIVE DIAGNOSIS: Right lower extremity disabling claudication/rest pain and left lower extr emity disabling claudication. PROCEDURES: 1. Iliofemoral endarterectomy with end bovine patch angioplasty. 2. Femoral to femoral bypass with 8 mm PTFE graft. ANESTHESIA: General. COMPLICATIONS: None. ESTIMATED BLOOD LOSS: 400 mL. TRANSFUSIONS: One unit packed red blood cells. SPECIMEN: None. INDICATIONS: This is a 71-year-old female who presented with worsening right lower extremity disabl ing claudication that progressed to mild rest pain with history of left lower extremity disabling cl audication. 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 Subsequently, the patient underwent aortoiliac stenting of her left common iliac artery in order to improve her perfusion to her left lower extrem ity and to create a stage procedure in order for the patient to have her fem-fem bypass. The patien t now presents for the second portion of her procedure as the patient does have history of coronary artery disease and wanted to decrease her general anesthesia time. Therefore, the patient's risks, benefits and alternatives were discussed, however, not limited to , pneumonia, stroke, infectio n, thrombosis of artery, revisions, nerve injury, possible limb loss, possible distal revascularizat ion, bowel ischemia and the patient has elected to undergo surgical intervention. DESCRIPTION OF PROCEDURE: The patient was brought in to the operating room table, placed in supine position. The arms were padded and placed in 80 degrees. Normal bony prominences were padded. Ane sthesia team had placed appropriate lines and general anesthesia was given. Patient tolerated that well. Under sterile conditions, arterial line and Brody catheter were placed per protocols. A time out was performed, appropriate sites were marked and confirmed. The abdomen from the xiphoid to the pubis and the bilateral lower extremities were prepped and draped in usual standard sterile fashion . A vertical incision was then made over the bilateral common femoral arteries. Fascia and lymphat ic tissues were dissected. The common femoral artery, superficial femoral artery, and profunda femo ral arteries were both dissected and isolated on the bilateral groins. On the left lower extremity was challenging dissection as the patient has had multiple previous endovascular interventions and m ultiple closure devices had been used in the past. This aspect of the common femoral artery was sig nificantly diseased, which would require endarterectomy and revision. Further the patient did have bilateral inguinal hernias which careful attention was paid to how we would create our tunnel. Ther efore, using a Ramona tunneler a tunnel was created subcutaneously between both groins and a ring. The PTFE 8 mm graft was passed in the tunnel. The patient was given 6000 units of intravenous hepa rin. After adequate time had passed of 5 minutes, the common femoral artery, profunda femoral arter y and superficial femoral artery were clamped on the left lower extremity, which was the donor site. An arteriotomy was then performed in the common femoral artery obliquely towards the profunda femori s artery using a #11 blade scalpel and then extended using Jefferson scissors. It was identified the pa tient has significant new intimal hyperplasia and moderate to severe stenosis of the proximal aspect of the common femoral artery which would require to be revised. As the fem-fem graft would be plac ed at the distal aspect of the common femoral artery secondary to patient having a pannus and having inguinal hernia, we wanted to make sure there were no kinks that would develop with the fem-fem byp ass. Therefore, at this point, we went ahead and dissected the common femoral artery into the exter nal iliac artery underneath the inguinal ligament. The inguinal ligament was elevated using a retra ctor and external iliac artery was completely dissected free from all of the surrounding tissues in the retroperitoneum to the iliac bifurcation. At this point, a soft segment was identified for clam ping of the proximal external iliac artery. Therefore, clamps were repositioned and external iliac artery was clamped in its proximal aspect. Once this was performed, our was arteriotomy was extende d into the mid external iliac artery and endarterectomy was performed. The artery was then revised using a bovine patch angioplasty and using a running 6-0 Prolene suture in a continuous fashion the artery was reconstructed. At this point, in the distal aspect of the common femoral artery. We autumn t ahead and made a graftotomy and an anastomosis was then constructed between the end of the graft a nd the side of the femoral artery using a 6-0 Prolene suture in a continuous fashion. Before comple ting the anastomosis, the lumen was then irrigated with heparinized saline. The atraumatic vascular clamps were then applied to the proximal aspect of the graft and the profunda femoral artery and th e superficial femoral arteries were allowed to backbleed. The common femoral artery was then allowe d to forward bleed with removing the clamp from the proximal external iliac artery. The anastomosis was then completed and blood was allowed to flow into the donor leg. Once this was performed, a Do ppler was checked and there was good Doppler signals. At this point, the recipient femoral artery w as then prepped in the same fashion as the donor site. An arteriotomy was then made in the distal c ommon femoral artery and extended towards the profunda. Anastomosis was then constructed between th e end of the graft and the side of the common femoral artery in a similar fashion. Blood loss was t hen allowed to back bleed from the profunda femoral artery and superficial femoral artery and the gr aft was allowed to forward bleed. The lumen was then irrigated and anastomosis was completed. Bloo d flow in the superficial femoral artery and profunda femoral arteries were then checked and both we re palpable and appropriate signal with Doppler. Hemostasis was secured in both groins. Both groin s were then closed in a 3-layer fashion. The first layer was closed with 3-0 Prolene suture and nex t 2 were closed with 3-0 Vicryl suture. Using placenta amniotic tissue was placed in subcutaneous l diana in order to prevent any wound dehiscence and to decrease infection as the patient does have a l arge pannus and concern of wound infection , she has a lot of subcutaneous tissue in this segme nt. Pulses were then checked in both the donor and the recipient legs postoperatively and were adeq uate on Doppler. The patient had posterior tibial signals. Dressings were applied to both groins. Patient tolerated the procedure well and the patient was taken to the postanesthesia care unit in s table condition. All instrument, sponge and needle counts were correct x2. Dictated By: JAKOB VASQUEZ/NTS Conf#: [id number] DID#: [id number]
[2017-06-23] MEDS ORDERED: FUROSEMIDE 20 MG INJ IV ONE (09:30)
--- NOTE | 2017-06-23 15:05 | PN ---
Date/Time of Note Date/Time of Note DATE: 06/23/17 TIME: 15:00 Assessment/Plan VTE Prophylaxis VTE Prophylaxis Intervention: SCD's Lines/Catheters [facility] Saline [facility] Urinary Cath still in place: No Assessment/Plan Chief Complaint/Hosp Course Hemoglobin is 7.3 patient is undergoing blood transfusion, will check CBC tomorrow. Assessment/Plan 1. Severe peripheral vascular disease with recent left common iliac artery stenting, s/p left iliofemoral endarterectomy and left to right femoral to femoral bypass. Continue aspirin. 2. Coronary artery disease, status post CABG, currently chest pain free. Continue aspirin and carvedilol. 3. Hypertension. Blood pressure well controlled. Continue carvedilol. 4. Diabetes. Continue NovoLog per sliding scale. 5. Dyslipidemia. Continue statins. 6. Hypothyroidism. Continue Synthroid. Further recommendations based on clinical course. Plan of care discussed with Dr. Mukherjee Problems: Exam/Review of Systems Vital Signs Vitals Vital Signs Date Time Temp Pulse Resp B/P Pulse Ox O2 Delivery O2 Flow Rate FiO2 06/23/17 12:10 66 06/23/17 11:29 98.7 16 117/58 99 06/21/17 18:00 Room Air Intake and Output 06/22/17 06/22/17 06/23/17 15:00 23:00 07:00 Intake Total 350 ml 420 ml 200 ml Output Total 550 ml Balance 350 ml -130 ml 200 ml Exam Constitutional: alert, oriented Respiratory: normal air movement Cardiovascular: nl pulses, regular rate and rhythm Gastrointestinal: non-tender, soft Musculoskeletal: nl extremities to inspection Extremities: normal pulses Neurological: nl mental status Results Result Diagram: 06/23/17 0554 06/23/17 0554 Results 24 hrs Laboratory Tests Test 06/22/17 17:00 06/22/17 20:10 06/23/17 05:54 06/23/17 07:42 Bedside Glucose 161 178 124 White Blood Count 11.3 H Red Blood Count 2.46 L Hemoglobin 7.3 L Hematocrit 22.0 L Mean Corpuscular Volume 89.4 Mean Corpuscular Hemoglobin 29.7 Mean Corpuscular Hemoglobin Concent 33.2 Red Cell Distribution Width 14.7 H Platelet Count 190 Mean Platelet Volume 10.7 H Neutrophils % 76.7 Lymphocytes % 11.5 L Monocytes % 9.3 Eosinophils % 1.8 Basophils % 0.2 Nucleated Red Blood Cells % 0.0 Neutrophils # 8.7 H Lymphocytes # 1.3 Monocytes # 1.1 H Eosinophils # 0.2 Basophils # 0.0 Nucleated Red Blood Cells # 0.0 Sodium Level 137 Potassium Level 4.5 Chloride Level 109 Carbon Dioxide Level 23 Anion Gap 10 Blood Urea Nitrogen 24 H Creatinine 1.16 H Glucose Level 112 Calcium Level 8.0 L Test 06/23/17 11:39 Bedside Glucose 165 Medications Medications Current Medications Aspirin (Aspirin) 81 mg DAILY PO Last administered on 06/23/17 08:00; Admin Dose 81 MG; Start 06/21/17 at 09:00 Calcium Carbonate (Oyster Shell Calcium) 1.25 gm DAILY PO Last administered on 06/23/17 08:00; Admin Dose 1.25 GM; Start 06/21/17 at 09:00 Carvedilol (Coreg) 12.5 mg BID PO Last administered on 06/23/17 08:00; Admin Dose 12.5 MG; Start 06/20/17 at 21:00 Pantoprazole (Protonix Tab) 40 mg DAILY PO Last administered on 06/23/17 08:00 ; Admin Dose 40 MG; Start 06/21/17 at 09:00 Diagnostic Test (Pha) (Accu-Chek) 1 ea 02 XX ; Start 06/21/17 at 02:00 Diagnostic Test (Pha) (Accu-Chek) 1 ea 02 XX ; Start 06/21/17 at 02:00 Ondansetron HCl (Zofran Inj) 4 mg Q4H PRN IV NAUSEA AND/OR VOMITING Last administered on 06/21/17 07:44; Admin Dose 4 MG; Start 06/20/17 at 17:30 Acetaminophen/ Hydrocodone Bitart ([place] (5/325)) 1 tab Q4H PRN PO MODERATE PAIN Last administered on 06/23/17 02:09; Admin Dose 1 TAB; Start 06/20/17 at 17:30 Miscellaneous Information 1 ea NOTE XX ; Start 06/20/17 at 18:00 Glucose (Glutose) 15 gm Q15M PRN PO DECREASED GLUCOSE; Start 06/20/17 at 18:00 Glucose (Glutose) 22.5 gm Q15M PRN PO DECREASED GLUCOSE; Start 06/20/17 at 18: 00 Dextrose (D50w Syringe) 25 ml Q15M PRN IV DECREASED GLUCOSE; Start 06/20/17 at 18:00 Dextrose (D50w Syringe) 50 ml Q15M PRN IV DECREASED GLUCOSE; Start 06/20/17 at 18:00 Glucagon (Glucagen) 1 mg Q15M PRN IM DECREASED GLUCOSE; Start 06/20/17 at 18: 00 Glucose (Glutose) 15 gm Q15M PRN BUCCAL DECREASED GLUCOSE; Start 06/20/17 at 18:00 Chlorthalidone (Hygroton) 25 mg DAILY PO Last administered on 06/23/17 08:00; Admin Dose 25 MG; Start 06/21/17 at 09:00 Atorvastatin Calcium (Lipitor) 40 mg DAILY@21 PO Last administered on 20:11; Admin Dose 40 MG; Start 06/21/17 at 21:00 Heparin Sodium (Porcine) (Heparin (5000 Units/0.5 ml)) 5,000 unit Q8 SC Last administered on 06/23/17 06:33; Admin Dose 5,000 UNIT; Start 06/21/17 at 15:30 KHUSHI AGARWAL Jun 23, 2017 15:05
[2017-06-23] MEDS ORDERED: ACETAMINOPHEN 325 MG TAB PO PRN (15:30)
[2017-06-23] MEDS: POLYETHYLENE GLYCOL 17 GM PACKET GTB SCH (15:45)
[2017-06-23] MEDS: ATORVASTATIN 40 MG TAB PO SCH (20:32)
[2017-06-23] MEDS: DOCUSATE SODIUM 100 MG CAP PO SCH (20:32)
[2017-06-24] VITALS (12 sets, daily range): BP systolic 141–168; BP diastolic 65–74; PULSE 62–68; RESP 18–20
[2017-06-24] MEDS: ACCU-CHEK XX SCH (02:00)
[2017-06-24] MEDS: HYDROCODONE/APAP (5/325) TAB PO PRN ×3 (04:53→16:22)
[2017-06-24] MEDS: HEPARIN 5,000 UNIT/0.5 ML VIAL SC SCH (04:57)
[2017-06-24] MEDS: LEVOTHYROXINE 25 MCG TAB PO SCH (05:04)
[2017-06-24] MEDS: POLYETHYLENE GLYCOL 17 GM PACKET GTB SCH (08:18)
[2017-06-24] MEDS: ASPIRIN 81 MG TAB PO SCH (08:18)
[2017-06-24] MEDS: CALCIUM CARBONATE 1.25 GM TAB PO SCH (08:18)
[2017-06-24] MEDS: PANTOPRAZOLE (EC) 40 MG TAB PO SCH (08:18)
[2017-06-24] MEDS: DOCUSATE SODIUM 100 MG CAP PO SCH ×2 (08:18→21:00)
[2017-06-24] MEDS: INSULIN ASPART [NOVOLOG] 3 ML PEN SC SCH ×4 (08:26→21:33)
[2017-06-24] MEDS: CHLORTHALIDONE 25 MG TAB PO SCH (08:26)
--- NOTE | 2017-06-24 13:20 | PN ---
Date/Time of Note Date/Time of Note DATE: 06/24/17 TIME: 13:15 Assessment/Plan VTE Prophylaxis VTE Prophylaxis Intervention: other Lines/Catheters [facility]from [facility] Saline [facility] Urinary Cath still in place: No Assessment/Plan Assessment/Plan 1. Severe peripheral vascular disease with recent left common iliac artery stenting, s/p left iliofemoral endarterectomy and left to right femoral to femoral bypass. Continue aspirin. 2. Coronary artery disease, status post CABG, currently chest pain free. Continue aspirin and carvedilol. 3. Hypertension. Blood pressure well controlled. Continue carvedilol. 4. Diabetes. Continue NovoLog per sliding scale. 5. Dyslipidemia. Continue statins. 6. Hypothyroidism. Continue Synthroid. 7. Anemia- SP 1 UNIT PRBC, stable now.patient is on Lovenox TID per vascular, RN to check with vascular sx. Further recommendations based on clinical course. Plan of care discussed with Dr. Mukherjee Subjective 24 Hr Interval Summary Free Text/Dictation Anemia- SP 1 UNIT PRBC, stable now.patient is on Lovenox TID per vascular, RN to check with vascular sx., CBC tomorrow. Ambulated with PT, tolerating, daughter at bed side- all Qs answered. Constitutional: improved Respiratory: no complaints Cardiovascular: no complaints Gastrointestinal: no complaints Genitourinary: bleeding Musculoskeletal: other (LLE pain) Neurologic: no complaints Exam/Review of Systems Vital Signs Vitals Vital Signs Date Time Temp Pulse Resp B/P Pulse Ox O2 Delivery O2 Flow Rate FiO2 06/24/17 12:25 62 06/24/17 11:57 98.4 18 141/65 98 06/21/17 18:00 Room Air Intake and Output 06/23/17 06/23/17 06/24/17 15:00 23:00 07:00 Intake Total 1090 ml 500 ml Balance 1090 ml 500 ml Exam Constitutional: alert, oriented, well developed Respiratory: clear to auscultation, normal air movement Cardiovascular: nl pulses, other (s1s2) Gastrointestinal: non-tender, soft Musculoskeletal: other Extremities: normal pulses Neurological: nl mental status, nl speech Results Result Diagram: 06/24/17 0553 06/24/17 0553 Results 24 hrs Laboratory Tests Test 06/23/17 17:23 06/23/17 20:31 06/24/17 05:53 06/24/17 08:22 Bedside Glucose 159 163 151 White Blood Count 9.2 Red Blood Count 3.17 #L Hemoglobin 9.4 #L Hematocrit 27.6 #L Mean Corpuscular Volume 87.1 Mean Corpuscular Hemoglobin 29.7 Mean Corpuscular Hemoglobin Concent 34.1 Red Cell Distribution Width 14.4 Platelet Count 206 Mean Platelet Volume 11.1 H Neutrophils % 76.5 Lymphocytes % 11.6 L Monocytes % 8.8 Eosinophils % 2.3 Basophils % 0.3 Nucleated Red Blood Cells % 0.0 Neutrophils # 7.0 Lymphocytes # 1.1 Monocytes # 0.8 Eosinophils # 0.2 Basophils # 0.0 Nucleated Red Blood Cells # 0.0 Sodium Level 137 Potassium Level 4.1 Chloride Level 106 Carbon Dioxide Level 22 Anion Gap 13 Blood Urea Nitrogen 22 H Creatinine 1.06 H Glucose Level 200 Calcium Level 7.6 L Test 06/24/17 12:12 Bedside Glucose 160 Medications Medications Current Medications Aspirin (Aspirin) 81 mg DAILY PO Last administered on 06/24/17 08:18; Admin Dose 81 MG; Start 06/21/17 at 09:00 Calcium Carbonate (Oyster Shell Calcium) 1.25 gm DAILY PO Last administered on 06/24/17 08:18; Admin Dose 1.25 GM; Start 06/21/17 at 09:00 Carvedilol (Coreg) 12.5 mg BID PO Last administered on 06/24/17 08:24; Admin Dose 12.5 MG; Start 06/20/17 at 21:00 Pantoprazole (Protonix Tab) 40 mg DAILY PO Last administered on 06/24/17 08:18 ; Admin Dose 40 MG; Start 06/21/17 at 09:00 Diagnostic Test (Pha) (Accu-Chek) 1 ea 02 XX ; Start 06/21/17 at 02:00 Ondansetron HCl (Zofran Inj) 4 mg Q4H PRN IV NAUSEA AND/OR VOMITING Last administered on 06/21/17 07:44; Admin Dose 4 MG; Start 06/20/17 at 17:30 Acetaminophen/ Hydrocodone Bitart ([place] (5/325)) 1 tab Q4H PRN PO MODERATE PAIN Last administered on 06/24/17 10:39; Admin Dose 1 TAB; Start 06/20/17 at 17:30 Miscellaneous Information 1 ea NOTE XX ; Start 06/20/17 at 18:00 Glucose (Glutose) 15 gm Q15M PRN PO DECREASED GLUCOSE; Start 06/20/17 at 18:00 Glucose (Glutose) 22.5 gm Q15M PRN PO DECREASED GLUCOSE; Start 06/20/17 at 18: 00 Dextrose (D50w Syringe) 25 ml Q15M PRN IV DECREASED GLUCOSE; Start 06/20/17 at 18:00 Dextrose (D50w Syringe) 50 ml Q15M PRN IV DECREASED GLUCOSE; Start 06/20/17 at 18:00 Glucagon (Glucagen) 1 mg Q15M PRN IM DECREASED GLUCOSE; Start 06/20/17 at 18: 00 Glucose (Glutose) 15 gm Q15M PRN BUCCAL DECREASED GLUCOSE; Start 06/20/17 at 18:00 Chlorthalidone (Hygroton) 25 mg DAILY PO Last administered on 06/24/17 08:26; Admin Dose 25 MG; Start 06/21/17 at 09:00 Atorvastatin Calcium (Lipitor) 40 mg DAILY@21 PO Last administered on 20:32; Admin Dose 40 MG; Start 06/21/17 at 21:00 Heparin Sodium (Porcine) (Heparin (5000 Units/0.5 ml)) 5,000 unit Q8 SC Last administered on 06/24/17 04:57; Admin Dose 5,000 UNIT; Start 06/21/17 at 15:30 Acetaminophen (Tylenol Tab) 650 mg Q4H PRN PO PAIN AND OR ELEVATED TEMP Last administered on 06/23/17 15:18; Admin Dose 650 MG; Start 06/23/17 at 15:30 Docusate Sodium (Colace) 100 mg BID PO Last administered on 06/24/17 08:18; Admin Dose 100 MG; Start 06/23/17 at 21:00 Polyethylene Glycol (Miralax) 17 gm DAILY GTB Last administered on 06/24/17 08 :18; Admin Dose 17 GM; Start 06/23/17 at 15:30 LAURA YOUNG Jun 24, 2017 13:20
[2017-06-24] MEDS ORDERED: BISACODYL (EC) 5 MG TAB PO PRN (16:30)
[2017-06-24] MEDS ORDERED: MAGNESIUM HYDROXIDE 30ML CUP PO ONE (16:30)
--- NOTE | 2017-06-24 18:45 | RADRPT ---
PROCEDURE: Ultrasound soft tissue CLINICAL INDICATION: Pubic and perineal swelling. TECHNIQUE: An ultrasound of the pubic and peroneal soft tissues was performed utilizing ryan scale imaging. COMPARISON: None. FINDINGS: There is subcutaneous edema. No mass, cyst, or fluid collection is identified. IMPRESSION: 1. Subcutaneous edema, nonspecific. 2. No mass, cyst, or fluid collection. RPTAT: HTAR .Benito Arriaza MD, MD Date Time Electronically viewed and signed by .Benito Arriaza MD, on 06/24/2017 18:44 .R/
[2017-06-24] MEDS: ATORVASTATIN 40 MG TAB PO SCH (21:22)
[2017-06-25] VITALS (10 sets, daily range): BP systolic 145–168; BP diastolic 66–82; PULSE 62–76; RESP 16–18
[2017-06-25] MEDS: ACCU-CHEK XX SCH (01:24)
[2017-06-25] MEDS: LEVOTHYROXINE 25 MCG TAB PO SCH (06:16)
[2017-06-25] MEDS: INSULIN ASPART [NOVOLOG] 3 ML PEN SC SCH ×2 (07:55→12:19)
[2017-06-25] MEDS: POLYETHYLENE GLYCOL 17 GM PACKET GTB SCH (08:15)
[2017-06-25] MEDS: DOCUSATE SODIUM 100 MG CAP PO SCH (08:16)
[2017-06-25] MEDS: ASPIRIN 81 MG TAB PO SCH (08:17)
[2017-06-25] MEDS: PANTOPRAZOLE (EC) 40 MG TAB PO SCH (08:17)
[2017-06-25] MEDS: CHLORTHALIDONE 25 MG TAB PO SCH (08:17)
[2017-06-25] MEDS: CALCIUM CARBONATE 1.25 GM TAB PO SCH (08:17)
[2017-06-25] MEDS: HYDROCODONE/APAP (5/325) TAB PO PRN (11:24)
--- NOTE | 2017-06-25 15:10 | PDOCDIS ---
Discharge Instructions CONDITION Patient Condition: Stable HOME CARE INSTRUCTIONS: Diet Instructions: ACTIVITY: Activity Restrictions: Slowly Increase Activity Rest between Activity Avoid heavy lifting Do not Drive Bathing Restrictions: FOLLOW UP/APPOINTMENTS Follow-up Plan FU with PMD x 1 week FU with Vascular Sx as recommended Call 911 or go to the nearest hospital if symptoms get worse. Patient and her daughter verbalized understanding . RUSSELL Mukherjee/staff LAURA YOUNG Jun 25, 2017 15:10
[2017-06-25] MEDS ORDERED: POLY17PO6 GTB (15:13)
[2017-06-25] MEDS ORDERED: BISA5TAB6 PO (15:13)
--- NOTE | 2017-06-25 15:26 | DS ---
Date/Time of Note Date/Time of Note DATE: 06/25/17 TIME: 15:26 Discharge Summary Admission/Discharge Info Admit Date/Time Jun 20, 2017 at 05:43 Discharge Date/Time Patient Condition: Stable Hospital Course Hemoglobin is 7.3 patient is undergoing blood transfusion, will check CBC tomorrow. Assessment/Plan 1. Severe peripheral vascular disease with recent left common iliac artery stenting, s/p left iliofemoral endarterectomy and left to right femoral to femoral bypass. Continue aspirin. 2. Coronary artery disease, status post CABG, currently chest pain free. Continue aspirin and carvedilol. 3. Hypertension. Blood pressure well controlled. Continue carvedilol. 4. Diabetes. Continue NovoLog per sliding scale. 5. Dyslipidemia. Continue statins. 6. Hypothyroidism. Continue Synthroid. Further recommendations based on clinical course. Plan of care discussed with Dr. Mukherjee [facility] Active Scripts Polyethylene Glycol* (Miralax*) 17 Gm Powd.pack, 17 GM GTB DAILY for 30 Days Prov:LAURA YOUNG 06/25/17 Bisacodyl* (Bisacodyl*) 5 Mg Tablet., 10 MG PO DAILY Y for CONSTIPATION for 30 Days Prov:LAURA YOUNG 06/25/17 Pantoprazole* (Protonix*) 40 Mg Tablet., 40 MG PO DAILY, #20 TAB Prov:LAURA YOUNG 06/08/17 Reported Medications Omeprazole* (Omeprazole*) 20 Mg Capsule., 20 MG PO DAILY, #30 CAP 06/07/17 Chlorthalidone* (Chlorthalidone*) 25 Mg Tablet, 25 MG PO DAILY, TAB 06/07/17 Liraglutide (Victoza 3-German) 0.6 Mg/0.1 Ml Pen.injctr, 1.8 MG SQ DAILY, SYR 06/02/16 Tramadol Hcl* (Ultram*) 50 Mg Tablet, 50 MG PO Q6H Y for PAIN, TAB 06/02/16 Levothyroxine Sodium* (Levothyroxine Sodium*) 25 Mcg Tablet, 25 MCG PO BEFORE BREAKFAST, #30 TAB 06/02/16 Carvedilol* (Carvedilol*) 12.5 Mg Tablet, 12.5 MG PO BID, #60 TAB 06/02/16 Rosuvastatin Calcium* (Crestor*) 10 Mg Tablet, 10 MG PO QHS, #30 TAB 06/02/16 Aspirin* (Aspirin* Chew) 81 Mg Tab.chew, 81 MG PO DAILY, TAB.CHEW 06/02/16 Calcium Carbonate (Oysco-500) 500 Mg Tablet, 500 MG PO DAILY, TAB 06/02/16 Discontinued Reported Medications Carvedilol* (Carvedilol*) 25 Mg Tablet, 25 MG PO BID, #60 TAB 06/07/17 Follow-up Plan FU with PMD x 1 week FU with Vascular Sx as recommended Call 911 or go to the nearest hospital if symptoms get worse. Patient and her daughter verbalized understanding . RUSSELL Mukherjee/staff Primary Care Provider Not On Staff Doctor Time spent on discharge: < 30 minutes Pending Labs Laboratory Tests Test 06/24/17 17:21 06/24/17 21:21 06/25/17 01:27 06/25/17 08:13 Bedside Glucose 173mg/dL (70-220) 185mg/dL (70-220) 116mg/dL (70-220) 126mg/dL (70-220) Test 06/25/17 10:55 06/25/17 11:17 06/25/17 12:06 White Blood Count 8.310^3/ul (4.8-10.8) Red Blood Count 3.4610^6/ul (4.20-5.40) Hemoglobin 9.9g/dl (12.0-16.0) Hematocrit 30.0% (37.0-47.0) Mean Corpuscular Volume 86.7fl (82.0-101.0) Mean Corpuscular Hemoglobin 28.6pg (29.0-33.0) Mean Corpuscular Hemoglobin Concent 33.0g/dl (32.0-37.0) Red Cell Distribution Width 14.6% (11.5-14.5) Platelet Count 37862^3/UL (140-415) Mean Platelet Volume 10.4fl (7.4-10.4) Neutrophils % 70.2% (39.0-77.0) Lymphocytes % 14.4% (15.0-51.0) Monocytes % 10.6% (0.0-11.0) Eosinophils % 3.6% (0.0-7.0) Basophils % 0.6% (0.0-2.0) Nucleated Red Blood Cells % 0.0/100WBC (0.0-0.0) Neutrophils # 5.910^3/ul (1.6-7.5) Lymphocytes # 1.210^3/ul (0.8-2.9) Monocytes # 0.910^3/ul (0.3-0.9) Eosinophils # 0.310^3/ul (0.0-0.5) Basophils # 0.110^3/ul (0.0-0.1) Nucleated Red Blood Cells # 0.010^3/ul (0.0-0.0) Sodium Level 136mmol/L (135-144) Potassium Level 4.6mmol/L (3.5-5.1) Chloride Level 105mmol/L (97-110) Carbon Dioxide Level 25mmol/L (21-31) Anion Gap 11 (8-16) Blood Urea Nitrogen 22mg/dl (7-20) Creatinine 1.00mg/dl (0.44-1.00) Glucose Level 172mg/dl (70-220) Calcium Level 8.2mg/dl (8.4-10.2) Lab Scanned Report BLOOD [id number] Bedside Glucose 197mg/dL (70-220) LAURA YOUNG Jun 25, 2017 15:26
== END 2017-06-25 17:00 | disposition home or self-care (01) | DRG 271 ==
LOC: REC 05:43 → ICU 15:25 → TEL 06-21 19:04
PROVIDERS: ADMIT Student in an Organized Health Care Education/Training Program; ATTEND Internal Medicine
PROC: 04CJ0ZZ Extirpation of Matter from Left External Iliac Artery, Open Approach (ICD-10-PCS; 2017-06-20)
PROC: 04UJ0KZ Supplement Left External Iliac Artery with Nonautologous Tissue Substitute, Open Approach (ICD-10-PCS; 2017-06-20)
PROC: 30233N1 Transfusion of Nonautologous Red Blood Cells into Peripheral Vein, Percutaneous Approach (ICD-10-PCS; 2017-06-20)
PROC: 041L0JH Bypass Left Femoral Artery to Right Femoral Artery with Synthetic Substitute, Open Approach (ICD-10-PCS; principal; 2017-06-20 07:30)
DX: I70.221 Atherosclerosis of native arteries of extremities with rest pain, right leg (principal); D62 Acute posthemorrhagic anemia; E11.9 Type 2 diabetes mellitus without complications; Z95.1 Presence of aortocoronary bypass graft; E78.5 Hyperlipidemia, unspecified; I10 Essential (primary) hypertension; E03.9 Hypothyroidism, unspecified; I25.10 Atherosclerotic heart disease of native coronary artery without angina pectoris; I70.202 Unspecified atherosclerosis of native arteries of extremities, left leg
CPT/HCPCS: 36430; 76536; 80048; 80053; 80061; 82962; 83036; 84443; 85025; 85610; 85730; 86850; 86900; 86901; 86920; 87081; 87086; 97110; 97116; 97162; 97530; J1940; C1768; J0360; J0690; J1170; J1644; J1815; J2250; J2405; J2710; J2765; J3010; J7030; J7120; P9016

== ENCOUNTER 2019-04-05 12:53 | Day surgery (SDC) | payer MEDICARE, OTHER ==
[~2019-04-05] VITALS: Ht 134.6 cm; Wt 49.3 kg
[~2019-04-05 12:53] MED LIST changes: +ASPI-903 PO; -ASPI81TA3 PO; +BISA5TAB6 PO; -CARV25TA79 PO; -CHLO25TA13 PO; +CHLO25TA2 PO; -CRES10 PO; +HYDROXYZINE; -LEVO25TA53 PO; +LEVO25TA6 PO; +MIRTAZAPINE; +NITROSTAT; +POLY17PO6 GTB; +RSV10T PO; -TRAM-40 PO; +TRAM50TA PO; +VIT D
[2019-04-05 14:38] VITALS: Ht 134.6 cm; Wt 49.3 kg
--- NOTE | 2019-04-05 14:40 | PREAC ---
Date/Time of Note Date/Time of Note DATE: 04/05/19 TIME: 14:36 Anesthesia Eval and Record Evaluation Time Pre-Procedure Interview DATE: 04/05/19 TIME: 14:36 Age 73 Sex female NPO: 8 hrs Preoperative diagnosis Abdominal Pain, GERD, CBH Planned procedure EGD and Colonoscopy Past Medical History Past Medical History: Includes Cardio: HTN, Dyslipidemia, CAD, CABG, Other (EF 55-70%) Endo: Diabetes Renal: CKD GI: GERD, Other (s/p right hemicolectomy) Surgery & Anesthesia Issues No known issue Meds Anticoagulation: No Beta Tee within 24 hr: Yes Active Scripts Polyethylene Glycol* (Miralax*) 17 Gm Powd.pack, 17 GM GTB DAILY for 30 Days Prov:LAURA YOUNG 06/25/17 Bisacodyl* (Bisacodyl*) 5 Mg Tablet., 10 MG PO DAILY PRN for CONSTIPATION for 30 Days Prov:LAURA YOUNG 06/25/17 Pantoprazole* (Protonix*) 40 Mg Tablet., 40 MG PO DAILY, #20 TAB Prov:LAURA YOUNG 06/08/17 Reported Medications [Vit D] No Conflict Check 04/05/19 [Nitrostat] No Conflict Check 04/05/19 [Mirtazapine] No Conflict Check 04/05/19 [Hydroxyzine] No Conflict Check 04/05/19 Omeprazole* (Omeprazole*) 20 Mg Capsule., 20 MG PO DAILY, #30 CAP 06/07/17 Chlorthalidone* (Chlorthalidone*) 25 Mg Tablet, 25 MG PO DAILY, TAB 06/07/17 Liraglutide (Victoza 3-German) 0.6 Mg/0.1 Ml Pen.injctr, 1.8 MG SQ DAILY, SYR 06/02/16 Tramadol Hcl* (Ultram*) 50 Mg Tablet, 50 MG PO Q6H PRN for PAIN, TAB 06/02/16 Levothyroxine Sodium* (Levothyroxine Sodium*) 25 Mcg Tablet, 25 MCG PO BEFORE BREAKFAST, #30 TAB 06/02/16 Carvedilol* (Carvedilol*) 12.5 Mg Tablet, 12.5 MG PO BID, #60 TAB 06/02/16 Rosuvastatin Calcium* (Crestor*) 10 Mg Tablet, 10 MG PO QHS, #30 TAB 06/02/16 Aspirin* (Aspirin* Chew) 81 Mg Tab.chew, 81 MG PO DAILY, TAB.CHEW 06/02/16 Calcium Carbonate (Oysco-500) 500 Mg Tablet, 500 MG PO DAILY, TAB 06/02/16 Meds reviewed: Yes Allergies Coded Allergies: No Known Allergy (Unverified , 09/01/16) Allergies Reviewed: Yes Labs/Studies Labs Reviewed: Reviewed by anesthesiologist test: N/A Studies: ECG (n/a), CXR (n/a) Pre-procedure Exam Airway: Adequate mouth opening, Adequate thyromental dist Mallampati: Mallampati II Teeth: Normal Lung: Normal Heart: Normal ASA Physical Status ASA physical status: 3 Emergency: None Planned Anesthetic General/MAC: MAC Planned Pain Management Parenteral pain med Pre-operative Attestations Prior to commencing anesthesia and surgery, the patient was re-evaluated, there was verification of: *The patient's identity *The results of appropriate recent lab work and preoperative vital signs *The above evaluation not changing prior to induction *Anesthetic plan, risk benefits, alternative and complications discussed with patient/family; questions answered; patient/family understands, accepts and wishes to proceed. MAX ESTEVES MD Apr 05, 2019 14:40
[2019-04-05] MEDS ORDERED: DEXTROSE 50% 50 ML SYRINGE ONE (14:51)
[2019-04-05] MEDS ORDERED: PROPOFOL 40 ML ONE (14:51)
[2019-04-05 14:52] VITALS: BP_SYST 109; BP_SYST 230; BP_DIAS 65; BP_DIAS 95; PULSE 73; RESP 18
[2019-04-05] MEDS ORDERED: hydrALAzine 20 MG INJ ONE (15:00)
[2019-04-05] MEDS ORDERED: LABETALOL HCL 20MG INJ ONE (15:00)
--- NOTE | 2019-04-05 15:29 | PAC ---
Date/Time of Note Date/Time of Note DATE: 04/05/19 TIME: 15:29 Post-Anesthesia Notes Post-Anesthesia Note Last documented vital signs T: 98.0 Activity: WNL Respiratory function: WNL Cardiovascular function: WNL Mental status: Baseline Pain reasonably controlled: Yes Hydration appropriate: Yes Nausea/Vomiting absent: Yes MAX ESTEVES MD Apr 05, 2019 15:29
[2019-04-05 16:45] VITALS: BP 114/63; RESP 14
[2019-04-05 17:24] VITALS: BP 138/63
== END 2019-04-05 16:14 | disposition home or self-care (01) ==
LOC: GIL 12:53
PROVIDERS: ATTEND Internal Medicine
DX: R19.4 Change in bowel habit (principal); L64.9 Androgenic alopecia, unspecified; K57.30 Diverticulosis of large intestine without perforation or abscess without bleeding; K44.9 Diaphragmatic hernia without obstruction or gangrene; K20.8 Other esophagitis; E11.9 Type 2 diabetes mellitus without complications; I12.9 Hypertensive chronic kidney disease with stage 1 through stage 4 chronic kidney disease, or unspecified chronic kidney disease; N18.9 Chronic kidney disease, unspecified; I73.9 Peripheral vascular disease, unspecified
CPT/HCPCS: 43239; 45380; 82962; 84484; 88305; 88312; 93005; J0360